=== PATIENT | male | born 1950 | race Caucasian/White ===

== ENCOUNTER 2018-04-22 23:02 | Emergency (ER) | payer MEDICARE, OTHER ==
[~2018-04-22] VITALS: Ht 172.7 cm; Wt 54.4 kg
[2018-04-22] MEDS ORDERED: NORCO 10-325 T1 EACH PO (23:10)
[2018-04-22] MEDS ORDERED: TRAZODONE HCL100 MG PO (23:11)
[2018-04-22] MEDS ORDERED: METOPROLOL TART25 MG PO (23:11)
[2018-04-22] MEDS ORDERED: GABAPENTIN300 MG PO (23:12)
[2018-04-22] MEDS ORDERED: PRAVASTATIN SOD40 MG PO (23:12)
[2018-04-22] MEDS ORDERED: DIAZEPAM 5 MG TAB ONE (23:22)
[2018-04-22] MEDS ORDERED: DIAZEPAM 5 MG TAB PO SCH (23:30)
[2018-04-22] MEDS ORDERED: DIAZEPAM 5 MG TAB PO ONE (23:45)
--- NOTE | 2018-04-23 00:08 | Diagnostic Imaging Report ---
EXAM: CERVICAL 3 VIEWS, AP, lateral and open mouth odontoid view DATE: 04/22/2018 11:17 PM Time stamp on exam: [id number] hours INDICATION: Neck pain, history of neck surgery COMPARISON: None FINDINGS: BONES: On the lateral view, the cervical spine is visualized from the skull base to C7. Grade 1 anterolisthesis of C7 in relation to T1. No displaced fractures. No lytic or blastic lesions. DISCS: Anterior surgical fusion C5, C6 and C7 with complete bony fusion. JOINTS: Multilevel uncovertebral arthrosis SOFT TISSUES: Within normal limits IMPRESSION: Nonspecific grade 1 anterolisthesis of C7 in relation to T1. No priors are available for comparison to establish chronicity. If there is concern for acute ligamentous injury, an MRI of the cervical spine is recommended for further evaluation. Surgical and bony fusion C5-C7. Signed by: Dr. Funmi Perdue M.D. on 04/23/2018 12:05 AM
[2018-04-23] MEDS ORDERED: HYDROMORPHONE 1MG/1ML INJ IM STA ×2 (01:05)
[2018-04-23] MEDS ORDERED: ONDANSETRON HCL 4 MG ORAL DISINTEGRATING TAB PO ONE ×2 (01:15)
[2018-04-23 02:12] VITALS: BP 114/70
[2018-04-23] MEDS ORDERED: VALIUM5 MG PO (02:12)
[2018-04-23] MEDS ORDERED: TALWIN NX PO (02:12)
[2018-04-23] MEDS ORDERED: LIDOCAINE 5% PATCH TP SCH ×2 (02:30→09:00)
[2018-04-23] MEDS ORDERED: LIDOCAINE 5% PATCH TP STA (02:35)
[2018-04-23] MEDS ORDERED: LIDOCAINE 5% PATCH TP ONE (02:37)
== END 2018-04-23 02:39 | disposition home or self-care (01) ==
LOC: ER 23:02
DX: M43.6 Torticollis (principal); S16.1XXA Strain of muscle, fascia and tendon at neck level, initial encounter; X50.1XXA Overexertion from prolonged static or awkward postures, initial encounter
CPT/HCPCS: 72040; 99283; J1170

== ENCOUNTER → 2018-12-17 | Outpatient (CLI) | payer MEDICARE ==
[~2018-12-17] MED LIST: GABAPENTIN300 MG PO; METOPROLOL TART25 MG PO; NORCO 10-325 T1 EACH PO; PRAVASTATIN SOD40 MG PO; REGADENOSON 0.4 MG/5 ML SYR IV ONE; TALWIN NX PO; TRAZODONE HCL100 MG PO; VALIUM5 MG PO
== END ==
LOC: NM 07:41
DX: R07.2 Precordial pain (principal)
CPT/HCPCS: 78452; 93017; A9502; J2785

== ENCOUNTER 2021-02-23 00:37 | Emergency (ER) | payer MEDICARE ==
[~2021-02-23] VITALS: Ht 172.7 cm; Wt 42.8 kg
[~2021-02-23 00:37] MED LIST changes: -REGADENOSON 0.4 MG/5 ML SYR IV ONE
[2021-02-23] MEDS ORDERED: GLUCAGON FOR INJ 1 MG VIAL IV ONE (01:00)
[2021-02-23] MEDS ORDERED: GLUCAGON FOR INJ 1 MG VIAL ONE (01:26)
[2021-02-23 02:11] LABS: BASOPHILS % 0.3 % (0.0-1.0); EOSINOPHILS # (AUTO) 0.1 (0.0-0.4); EOSINOPHILS % 0.8 % (0.0-6.0); HEMATOCRIT 32.5 % (38.2-49.6); HEMOGLOBIN 10.3 g/dL (14.0-18.0); LYMPHOCYTES # (AUTO) 1.3 (1.0-3.2); LYMPHOCYTES % 17.1 % (18.0-39.1); MEAN CORPUSCULAR HEMOGLOBIN 31.8 pg (28-32); MEAN CORPUSCULAR HGB CONC 31.7 g/dL (31-35); MEAN CORPUSCULAR VOLUME 100.3 fL (81-99); MONOCYTES # (AUTO) 0.5 (0.2-0.8); MONOCYTES % 6.3 % (4.4-11.3); NEUTROPHILS # (AUTO) 5.5 (2.1-6.9); NEUTROPHILS % 75.1 % (38.7-80.0); PLATELET COUNT 232 x10e3/uL (140-360); RED BLOOD COUNT 3.24 x10e6/uL (4.3-5.7); RED CELL DISTRIBUTION WIDTH 13.8 % (11.7-14.4)
[2021-02-23] MEDS ORDERED: PANTOPRAZOLE 40 MG 10ML VIAL IV STA (02:37)
[2021-02-23 02:48] LABS: INR 1.04; PROTHROMBIN TIME 14.2 seconds (11.9-14.5)
[2021-02-23] MEDS ORDERED: PANTOPRAZOLE 40 MG 10ML VIAL ONE (02:48)
[2021-02-23 02:52] VITALS: BP 116/60
[2021-02-23 02:58] LABS: ALANINE AMINOTRANSFERASE 6 IU/L (0-55); ALBUMIN 2.9 g/dL (3.5-5.0); ALBUMIN/GLOBULIN RATIO 0.7 (0.8-2.0); ALKALINE PHOSPHATASE 73 IU/L (40-150); ANION GAP 15.7 mmol/L (8-16); BLOOD UREA NITROGEN 13 mg/dL (7-26); BUN/CREATININE RATIO 19 (6-25); CALCIUM 8.8 mg/dL (8.4-10.2); CARBON DIOXIDE 21 mmol/L (22-29); CHLORIDE 104 mmol/L (98-107); CREATINE KINASE 17 IU/L (30-200); CREATININE, SERUM 0.69 mg/dL (0.72-1.25); EST GLOMERULAR FILTRATION RATE > 60 ML/MIN (60-); GLUCOSE 94 mg/dL (74-118); POTASSIUM 4.7 mmol/L (3.5-5.1); SODIUM 136 mmol/L (136-145)
[2021-02-23] MEDS ORDERED: CEPHALEXIN500 MG PO (16:53)
== END 2021-02-23 02:52 | disposition home or self-care (01) ==
LOC: FSED 01:12
DX: R09.89 Other specified symptoms and signs involving the circulatory and respiratory systems (principal); I10 Essential (primary) hypertension; E78.5 Hyperlipidemia, unspecified; F32.9 Major depressive disorder, single episode, unspecified; M54.9 Dorsalgia, unspecified; G89.29 Other chronic pain
CPT/HCPCS: 36415; 70360; 80053; 82550; 82553; 84484; 85025; 85610; 93005; 96374; 99283; C9113; J1610; U0002

== ENCOUNTER 2021-02-23 14:15 | Emergency (ER) | payer MEDICARE ==
[~2021-02-23] VITALS: Ht 172.7 cm; Wt 42.6 kg
[2021-02-23] MEDS ORDERED: SODIUM CHLORIDE 0.9% 1000ML 1,000 ML IV STA (14:30)
[2021-02-23 14:42] LABS: BASOPHILS % 0.3 % (0.0-1.0); EOSINOPHILS # (AUTO) 0.1 (0.0-0.4); EOSINOPHILS % 0.7 % (0.0-6.0); HEMATOCRIT 36.2 % (38.2-49.6); HEMOGLOBIN 11.6 g/dL (14.0-18.0); LYMPHOCYTES # (AUTO) 1.1 (1.0-3.2); LYMPHOCYTES % 15.1 % (18.0-39.1); MONOCYTES # (AUTO) 0.4 (0.2-0.8); MONOCYTES % 4.8 % (4.4-11.3); NEUTROPHILS # (AUTO) 5.8 (2.1-6.9); NEUTROPHILS % 78.6 % (38.7-80.0); PLATELET COUNT 272 x10e3/uL (140-360); RED BLOOD COUNT 3.62 x10e6/uL (4.3-5.7)
[2021-02-23 15:03] LABS: CLARITY,URINE CLOUDY (CLEAR); COLOR,URINE YELLOW (YELLOW); KETONES,URINE NEGATIVE (NEGATIVE); LEUKOCYTE ESTERASE ,URINE LARGE (NEGATIVE); NITRITE,URINE NEGATIVE (NEGATIVE); PROTEIN,URINE DIPSTICK NEGATIVE (NEGATIVE); URINE UROBILINOGEN 0.2 mg/dL (0.2 - 1)
[2021-02-23 15:04] LABS: PROTHROMBIN TIME 13.8 seconds (11.9-14.5)
[2021-02-23 15:14] LABS: ALANINE AMINOTRANSFERASE < 6 IU/L (0-55); ALBUMIN 3.1 g/dL (3.5-5.0); ALBUMIN/GLOBULIN RATIO 0.8 (0.8-2.0); ALKALINE PHOSPHATASE 78 IU/L (40-150); BLOOD UREA NITROGEN 12 mg/dL (7-26); BUN/CREATININE RATIO 18 (6-25); CALCIUM 8.8 mg/dL (8.4-10.2); CARBON DIOXIDE 24 mmol/L (22-29); CHLORIDE 104 mmol/L (98-107); CREATININE, SERUM 0.68 mg/dL (0.72-1.25); EST GLOMERULAR FILTRATION RATE > 60 ML/MIN (60-); GLUCOSE 101 mg/dL (74-118); LIPASE 12 U/L (8-78); SODIUM 137 mmol/L (136-145)
[2021-02-23 15:16] LABS: BACTERIA,URINE MANY /HPF
[2021-02-23] MEDS ORDERED: FENTANYL CITRATE/PF 100MCG/2 ML INJ IV PRN (15:30)
[2021-02-23] MEDS ORDERED: IOPAMIDOL 370 MG/ML 200 ML INFUS..BTL INJ ONE (15:32)
[2021-02-23] MEDS ORDERED: SODIUM CHLORIDE 0.9% 100 ML ONE (15:33)
[2021-02-23] MEDS ORDERED: CEFTRIAXONE SOD 1 GM VIAL IV ONE (15:45)
[2021-02-23] MEDS ORDERED: CEFTRIAXONE SOD 1 GM VIAL IM ONE (15:45)
[2021-02-23] MEDS ORDERED: CEFTRIAXONE SOD 1 GM in SODIUM CHLORIDE 0.9% 50ML 50 ML IV ONE (16:00)
[2021-02-23 16:52] VITALS: BP 135/67
[2021-02-23] MEDS ORDERED: CEPHALEXIN500 MG PO (16:53)
== END 2021-02-23 17:06 | disposition home or self-care (01) ==
LOC: ER 15:05
DX: R10.30 Lower abdominal pain, unspecified (principal); N39.0 Urinary tract infection, site not specified; K59.00 Constipation, unspecified; I10 Essential (primary) hypertension; E78.5 Hyperlipidemia, unspecified; F32.9 Major depressive disorder, single episode, unspecified; M54.9 Dorsalgia, unspecified; G89.29 Other chronic pain
CPT/HCPCS: 36415; 74174; 80053; 81001; 83690; 84484; 85025; 85610; 86850; 86870; 86880; 86900; 86905; 87086; 87186; 93005; 99001; 99284; J0696; J3010; J7030; J7050; Q9967; 31500; 94002

== ENCOUNTER 2021-02-23 22:42 | Inpatient (IN) | payer MEDICARE, OTHER ==
[~2021-02-23] VITALS: Ht 172.7 cm; Wt 64.9 kg
[~2021-02-23 22:42] MED LIST changes: +CEPHALEXIN500 MG PO
[2021-02-23] MEDS ORDERED: ASPIRIN 81 MG CHEW TAB PO ONE (23:00)
[2021-02-23 23:15] LABS: BASOPHILS % 0.2 % (0.0-1.0); HEMATOCRIT 39.8 % (38.2-49.6); HEMOGLOBIN 13.2 g/dL (14.0-18.0); LYMPHOCYTES # (AUTO) 1.6 (1.0-3.2); LYMPHOCYTES % 12.4 % (18.0-39.1); MEAN CORPUSCULAR HEMOGLOBIN 32.6 pg (28-32); MEAN CORPUSCULAR HGB CONC 33.2 g/dL (31-35); MEAN CORPUSCULAR VOLUME 98.3 fL (81-99); MONOCYTES # (AUTO) 0.6 (0.2-0.8); MONOCYTES % 4.3 % (4.4-11.3); NEUTROPHILS # (AUTO) 10.5 (2.1-6.9); NEUTROPHILS % 82.6 % (38.7-80.0); PLATELET COUNT 394 x10e3/uL (140-360); RED BLOOD COUNT 4.05 x10e6/uL (4.3-5.7); RED CELL DISTRIBUTION WIDTH 13.8 % (11.7-14.4)
[2021-02-23] MEDS ORDERED: ONDANSETRON HCL INJ 2MG/ML 2ML 2 MG/ML VIAL IV PRN (23:30)
[2021-02-23] MEDS ORDERED: ONDANSETRON HCL INJ 2MG/ML 2ML 2 MG/ML VIAL ONE (23:34)
[2021-02-23 23:40] LABS: ALANINE AMINOTRANSFERASE 6 IU/L (0-55); ALBUMIN 3.7 g/dL (3.5-5.0); ALBUMIN/GLOBULIN RATIO 0.8 (0.8-2.0); ALKALINE PHOSPHATASE 91 IU/L (40-150); ANION GAP 22.6 mmol/L (8-16); BLOOD UREA NITROGEN 11 mg/dL (7-26); BUN/CREATININE RATIO 15 (6-25); CALCIUM 9.9 mg/dL (8.4-10.2); CARBON DIOXIDE 19 mmol/L (22-29); CHLORIDE 102 mmol/L (98-107); CREATINE KINASE 24 IU/L (30-200); CREATININE, SERUM 0.75 mg/dL (0.72-1.25); EST GLOMERULAR FILTRATION RATE > 60 ML/MIN (60-); GLUCOSE 138 mg/dL (74-118); POTASSIUM 4.6 mmol/L (3.5-5.1); SODIUM 139 mmol/L (136-145)
[2021-02-23] MEDS: SODIUM CHLORIDE 0.9% 1000ML 1,000 ML IV SCH (23:45)
[2021-02-23] MEDS ORDERED: SODIUM CHLORIDE 0.9% 1000ML 2,000 ML ONE (23:54)
[2021-02-23] MEDS ORDERED: SODIUM CHLORIDE 0.9% 1000ML 1,000 ML IV STA ×2 (23:59)
[2021-02-24] VITALS (7 sets, daily range): BP systolic 130–152; BP diastolic 69–93
[2021-02-24] MEDS: CEFTRIAXONE 1 GM in SODIUM CHLORIDE 0.9% 50ML 50 ML IV SCH ×2
[2021-02-24] MEDS ORDERED: CEFTRIAXONE 1 GM VIAL IV SCH
[2021-02-24] MEDS ORDERED: SODIUM CHLORIDE 0.9% 50ML 50 ML ONE (00:11)
[2021-02-24] MEDS ORDERED: MORPHINE SULFATE INJ 4 MG/ML INJ 1ML IV PRN (01:00)
[2021-02-24] MEDS: TRAMADOL HCL 50 MG TAB PO SCH ×2 (05:08→13:07)
[2021-02-24] MEDS: GABAPENTIN 100 MG CAP PO SCH ×3 (05:08→20:52)
[2021-02-24] MEDS: ONDANSETRON HCL INJ 2MG/ML 2ML 2 MG/ML VIAL IV PRN ×4 (05:09→18:35)
[2021-02-24] MEDS: MORPHINE SULFATE INJ 4 MG/ML INJ 1ML IV PRN ×4 (05:09→18:35)
[2021-02-24 07:16] LABS: BASOPHILS % 0.1 % (0.0-1.0); HEMATOCRIT 32.7 % (38.2-49.6); HEMOGLOBIN 10.9 g/dL (14.0-18.0); LYMPHOCYTES # (AUTO) 0.6 (1.0-3.2); MEAN CORPUSCULAR HEMOGLOBIN 32.2 pg (28-32); MEAN CORPUSCULAR HGB CONC 33.3 g/dL (31-35); MEAN CORPUSCULAR VOLUME 96.7 fL (81-99); MONOCYTES # (AUTO) 0.7 (0.2-0.8); MONOCYTES % 6.5 % (4.4-11.3); NEUTROPHILS # (AUTO) 8.8 (2.1-6.9); NEUTROPHILS % 86.6 % (38.7-80.0); PLATELET COUNT 285 x10e3/uL (140-360); RED BLOOD COUNT 3.38 x10e6/uL (4.3-5.7); RED CELL DISTRIBUTION WIDTH 13.8 % (11.7-14.4)
[2021-02-24 07:42] LABS: ALBUMIN 2.6 g/dL (3.5-5.0); ALBUMIN/GLOBULIN RATIO 0.8 (0.8-2.0); ALKALINE PHOSPHATASE 66 IU/L (40-150); ANION GAP 14.6 mmol/L (8-16); BLOOD UREA NITROGEN 9 mg/dL (7-26); BUN/CREATININE RATIO 16 (6-25); CALCIUM 7.7 mg/dL (8.4-10.2); CARBON DIOXIDE 18 mmol/L (22-29); CHLORIDE 109 mmol/L (98-107); CREATININE, SERUM 0.57 mg/dL (0.72-1.25); EST GLOMERULAR FILTRATION RATE > 60 ML/MIN (60-); GLUCOSE 126 mg/dL (74-118); POTASSIUM 3.6 mmol/L (3.5-5.1); SODIUM 138 mmol/L (136-145)
[2021-02-24 07:59] LABS: ALANINE AMINOTRANSFERASE < 6 IU/L (0-55)
[2021-02-24] MEDS: SODIUM CHLORIDE 0.9% 1000ML 1,000 ML IV SCH (11:32)
[2021-02-24] MEDS ORDERED: CITRATE OF MAGNESIA 300ML BOTTLE PO ONE (15:30)
[2021-02-24 15:41] LABS: CLARITY,URINE SL CLOUDY (CLEAR); COLOR,URINE YELLOW (YELLOW); KETONES,URINE 1+ (NEGATIVE); LEUKOCYTE ESTERASE ,URINE MODERATE (NEGATIVE); NITRITE,URINE POSITIVE (NEGATIVE); PROTEIN,URINE DIPSTICK NEGATIVE (NEGATIVE); URINE UROBILINOGEN 0.2 mg/dL (0.2 - 1)
[2021-02-24 15:53] LABS: WBC,URINE (MAN) 21-50 /HPF (0-5)
[2021-02-24 15:54] LABS: BACTERIA,URINE FEW /HPF
[2021-02-24] MEDS: ENOXAPARIN 30 MG/0.3 ML SYR SC SCH (17:26)
[2021-02-24] MEDS: DOCUSATE SODIUM LIQD 100 MG/10 ML UDC NG SCH (17:26)
[2021-02-24] MEDS: METOPROLOL TARTRATE 25 MG TAB PO SCH (17:27)
[2021-02-24] MEDS: TRAMADOL HCL 50 MG TAB PO PRN (20:53)
[2021-02-24] MEDS: DIAZEPAM 5 MG TAB PO SCH (20:53)
[2021-02-25] VITALS (8 sets, daily range): BP systolic 109–133; BP diastolic 64–82
[2021-02-25] MEDS: SODIUM CHLORIDE 0.9% 1000ML 1,000 ML IV SCH
[2021-02-25] MEDS: MORPHINE SULFATE INJ 4 MG/ML INJ 1ML IV PRN ×2 (00:13→06:32)
[2021-02-25] MEDS: ONDANSETRON HCL INJ 2MG/ML 2ML 2 MG/ML VIAL IV PRN (00:14)
[2021-02-25] MEDS: CEFTRIAXONE 1 GM in SODIUM CHLORIDE 0.9% 50ML 50 ML IV SCH (00:23)
[2021-02-25] MEDS: TRAMADOL HCL 50 MG TAB PO PRN ×2 (04:19→23:03)
[2021-02-25] MEDS: DIAZEPAM 5 MG TAB PO SCH (05:27)
[2021-02-25 05:39] LABS: BASOPHILS % 0.2 % (0.0-1.0); HEMATOCRIT 39.5 % (38.2-49.6); HEMOGLOBIN 12.6 g/dL (14.0-18.0); LYMPHOCYTES # (AUTO) 0.8 (1.0-3.2); LYMPHOCYTES % 7.4 % (18.0-39.1); MEAN CORPUSCULAR HEMOGLOBIN 32.4 pg (28-32); MEAN CORPUSCULAR HGB CONC 31.9 g/dL (31-35); MEAN CORPUSCULAR VOLUME 101.5 fL (81-99); MONOCYTES % 9.4 % (4.4-11.3); NEUTROPHILS # (AUTO) 8.5 (2.1-6.9); NEUTROPHILS % 82.2 % (38.7-80.0); PLATELET COUNT 331 x10e3/uL (140-360); RED BLOOD COUNT 3.89 x10e6/uL (4.3-5.7); RED CELL DISTRIBUTION WIDTH 14.4 % (11.7-14.4)
[2021-02-25 06:02] LABS: ANION GAP 15.5 mmol/L (8-16); BLOOD UREA NITROGEN 12 mg/dL (7-26); BUN/CREATININE RATIO 16 (6-25); CALCIUM 8.1 mg/dL (8.4-10.2); CARBON DIOXIDE 21 mmol/L (22-29); CHLORIDE 108 mmol/L (98-107); CREATININE, SERUM 0.74 mg/dL (0.72-1.25); EST GLOMERULAR FILTRATION RATE > 60 ML/MIN (60-); GLUCOSE 123 mg/dL (74-118); POTASSIUM 4.5 mmol/L (3.5-5.1); SODIUM 140 mmol/L (136-145)
[2021-02-25] MEDS: METOPROLOL TARTRATE 25 MG TAB PO SCH ×3 (09:20→21:00)
[2021-02-25] MEDS: GABAPENTIN 100 MG CAP PO SCH ×3 (09:20→21:00)
[2021-02-25] MEDS: DOCUSATE SODIUM LIQD 100 MG/10 ML UDC NG SCH ×2 (09:20→17:47)
[2021-02-25] MEDS ORDERED: METOPROLOL TARTRATE INJ 1 MG/ML VIAL IV PRN (11:30)
[2021-02-25] MEDS ORDERED: MORPHINE SULFATE INJ 4 MG/ML INJ 1ML IV PRN (13:30)
[2021-02-25] MEDS ORDERED: DIAZEPAM 2 MG TAB PO PRN (13:45)
[2021-02-25] MEDS ORDERED: MORPHINE SULFATE INJ 2 MG/ML SYR IV PRN (13:45)
[2021-02-25 13:59] LABS: ABG HCO3 26 mmol/L (22-26); ABG PCO2 39 mmHg (35-45); ABG PH 7.42 (7.35-7.45); ABG PO2 54 mmHg (80-105)
[2021-02-25 14:00] LABS: ABG TCO2 27
[2021-02-25] MEDS ORDERED: DIAZEPAM 2 MG TAB PO SCH (14:00)
[2021-02-25] MEDS ORDERED: DIAZEPAM 5 MG TAB PO SCH (14:00)
[2021-02-25] MEDS ORDERED: IOPAMIDOL 370 MG/ML 200 ML INFUS..BTL INJ ONE (17:34)
[2021-02-25] MEDS ORDERED: SODIUM CHLORIDE 0.9% 50ML 50 ML ONE (17:34)
[2021-02-25] MEDS: ENOXAPARIN 30 MG/0.3 ML SYR SC SCH (17:48)
[2021-02-25] MEDS ORDERED: CEFEPIME HCL 1 GM VIAL ONE (20:39)
[2021-02-25] MEDS ORDERED: CEFEPIME HCL 1 GM VIAL IV SCH (22:00)
[2021-02-25] MEDS: CEFEPIME 1 GM in SODIUM CHLORIDE 0.9% 50ML 50 ML IV SCH (22:00)
[2021-02-25] MEDS ORDERED: ACETAMINOPHEN 325 MG TAB PO PRN (23:45)
[2021-02-26] VITALS (31 sets, daily range): BP systolic 81–144; BP diastolic 26–92
[2021-02-26] MEDS: ALBUTEROL/IPRATROPIUM 3 ML NEB NEB SCH ×4 (02:25→19:50)
[2021-02-26] MEDS ORDERED: SODIUM CHLORIDE 0.9% 250ML 250 ML ONE (04:23)
[2021-02-26] MEDS: CEFEPIME 1 GM in SODIUM CHLORIDE 0.9% 50ML 50 ML IV SCH ×3 (06:03→22:09)
[2021-02-26 06:09] LABS: HEMOGLOBIN 10.9 g/dL (14.0-18.0); LYMPHOCYTES # (AUTO) 0.6 (1.0-3.2); LYMPHOCYTES % 16.2 % (18.0-39.1); MEAN CORPUSCULAR HGB CONC 31.1 g/dL (31-35); MEAN CORPUSCULAR VOLUME 102.6 fL (81-99); MONOCYTES # (AUTO) 0.1 (0.2-0.8); MONOCYTES % 2.3 % (4.4-11.3); NEUTROPHILS # (AUTO) 3.1 (2.1-6.9); NEUTROPHILS % 79.7 % (38.7-80.0); PLATELET COUNT 241 x10e3/uL (140-360); RED BLOOD COUNT 3.41 x10e6/uL (4.3-5.7); RED CELL DISTRIBUTION WIDTH 14.3 % (11.7-14.4)
[2021-02-26 06:27] LABS: ALBUMIN 2.1 g/dL (3.5-5.0); ALBUMIN/GLOBULIN RATIO 0.7 (0.8-2.0); ANION GAP 13.9 mmol/L (8-16); CALCIUM 7.9 mg/dL (8.4-10.2); CREATININE, SERUM 1.66 mg/dL (0.72-1.25); POTASSIUM 3.9 mmol/L (3.5-5.1)
[2021-02-26] MEDS: ONDANSETRON HCL INJ 2MG/ML 2ML 2 MG/ML VIAL IV PRN (07:40)
[2021-02-26] MEDS: DOCUSATE SODIUM LIQD 100 MG/10 ML UDC NG SCH ×2 (09:00→16:13)
[2021-02-26] MEDS: METOPROLOL TARTRATE 25 MG TAB PO SCH ×3 (09:00→20:01)
[2021-02-26] MEDS: GABAPENTIN 100 MG CAP PO SCH ×3 (09:00→20:02)
[2021-02-26] MEDS ORDERED: NALOXONE HCL INJ 0.4 MG/ML AMP ONE ×2 (09:00→09:03)
[2021-02-26] MEDS ORDERED: SODIUM CHLORIDE 0.9% 1000ML 1,000 ML ONE (09:05)
[2021-02-26] MEDS ORDERED: VANCOMYCIN 1GM/NS 250 ML 250 ML IV ONE (10:15)
[2021-02-26] MEDS ORDERED: SODIUM CHLORIDE 0.9% 500ML 300 ML IV ONE (10:30)
[2021-02-26] MEDS ORDERED: SODIUM CHLORIDE 0.9% 500ML 500 ML ONE (10:55)
[2021-02-26 11:10] LABS: ABG HCO3 29 mmol/L (22-26); ABG PCO2 42 mmHg (35-45); ABG PH 7.45 (7.35-7.45); ABG PO2 52 mmHg (80-105); ABG TCO2 31
[2021-02-26] MEDS: NOREPINEPHRINE 8 MG/D5W 250 ML 250 ML IV PRN ×2 (12:20→22:50)
[2021-02-26] MEDS ORDERED: NOREPINEPHRINE 8 MG/D5W 250 ML 250 ML ONE (12:21)
[2021-02-26] MEDS: SODIUM CHLORIDE 0.9% 1000ML 1,000 ML IV SCH (14:04)
[2021-02-26] MEDS: FENTANYL 2000MCG/NS 250 250 ML IV SCH (14:37)
[2021-02-26 15:01] LABS: ABG HCO3 27 mmol/L (22-26); ABG PCO2 58 mmHg (35-45); ABG PH 7.28 (7.35-7.45); ABG PO2 97 mmHg (80-105); ABG TCO2 29
[2021-02-26] MEDS: ENOXAPARIN 30 MG/0.3 ML SYR SC SCH (16:13)
[2021-02-26] MEDS ORDERED: ALBUMIN 25% 25GM 100ML 0.25 GM/ML BTL IV NR (16:45)
[2021-02-26] MEDS: VASOPRESSIN 60 UNIT in DEXTROSE 5% 50ML 57 ML IV SCH (17:11)
[2021-02-26] MEDS ORDERED: PHENYLEPHRINE 10MG/ML VIAL 40 MG in DEXTROSE 5% 250ML 246 ML IV PRN (21:30)
[2021-02-26] MEDS ORDERED: ACETAMINOPHEN 1000 MG/100 ML IV PRN (21:30)
[2021-02-26 21:54] LABS: ABG HCO3 27 mmol/L (22-26); ABG PCO2 64 mmHg (35-45); ABG PH 7.24 (7.35-7.45); ABG PO2 53 mmHg (80-105); ABG TCO2 29
[2021-02-26 22:02] LABS: BASOPHILS % 0.5 % (0.0-1.0); HEMATOCRIT 34.7 % (38.2-49.6); HEMOGLOBIN 10.7 g/dL (14.0-18.0); LYMPHOCYTES # (AUTO) 0.3 (1.0-3.2); LYMPHOCYTES % 17.1 % (18.0-39.1); MEAN CORPUSCULAR HEMOGLOBIN 32.3 pg (28-32); MEAN CORPUSCULAR HGB CONC 30.8 g/dL (31-35); MEAN CORPUSCULAR VOLUME 104.8 fL (81-99); MONOCYTES # (AUTO) 0.1 (0.2-0.8); NEUTROPHILS # (AUTO) 1.5 (2.1-6.9); NEUTROPHILS % 76.4 % (38.7-80.0); PLATELET COUNT 196 x10e3/uL (140-360); RED BLOOD COUNT 3.31 x10e6/uL (4.3-5.7); RED CELL DISTRIBUTION WIDTH 14.4 % (11.7-14.4)
[2021-02-27] VITALS (26 sets, daily range): BP systolic 81–130; BP diastolic 46–76
[2021-02-27] MEDS: ALBUTEROL/IPRATROPIUM 3 ML NEB NEB SCH ×4 (00:35→20:05)
[2021-02-27] MEDS: FENTANYL 2000MCG/NS 250 250 ML IV SCH ×2 (01:09→22:46)
[2021-02-27] MEDS: LORAZEPAM INJ 2 MG/ML VIAL IV PRN (04:20)
[2021-02-27] MEDS: SODIUM CHLORIDE 0.9% 1000ML 1,000 ML IV SCH (04:43)
[2021-02-27 05:24] LABS: BASOPHILS % 0.7 % (0.0-1.0); EOSINOPHILS % 0.7 % (0.0-6.0); HEMATOCRIT 30.4 % (38.2-49.6); HEMOGLOBIN 9.4 g/dL (14.0-18.0); LYMPHOCYTES # (AUTO) 0.3 (1.0-3.2); LYMPHOCYTES % 10.3 % (18.0-39.1); MEAN CORPUSCULAR HEMOGLOBIN 32.2 pg (28-32); MEAN CORPUSCULAR HGB CONC 30.9 g/dL (31-35); MEAN CORPUSCULAR VOLUME 104.1 fL (81-99); MONOCYTES # (AUTO) 0.1 (0.2-0.8); MONOCYTES % 3.2 % (4.4-11.3); NEUTROPHILS # (AUTO) 2.3 (2.1-6.9); PLATELET COUNT 146 x10e3/uL (140-360); RED BLOOD COUNT 2.92 x10e6/uL (4.3-5.7); RED CELL DISTRIBUTION WIDTH 14.3 % (11.7-14.4)
[2021-02-27 05:39] LABS: ALBUMIN 1.7 g/dL (3.5-5.0); ALBUMIN/GLOBULIN RATIO 0.6 (0.8-2.0); ANION GAP 13.7 mmol/L (8-16); CALCIUM 7.1 mg/dL (8.4-10.2); CREATININE, SERUM 1.22 mg/dL (0.72-1.25); POTASSIUM 3.7 mmol/L (3.5-5.1)
[2021-02-27 06:02] LABS: PHOSPHORUS 4.2 MG/DL (2.3-4.7)
[2021-02-27] MEDS: CEFEPIME 1 GM in SODIUM CHLORIDE 0.9% 50ML 50 ML IV SCH ×3 (06:02→21:08)
[2021-02-27 07:22] LABS: LYMPHOCYTES % (MANUAL) 7 % (19-48); NEUTROPHILS % (MANUAL) 76 % (40-74)
[2021-02-27 07:23] LABS: METAMYELOCYTES % (MANUAL) 1 % (0-0); MONOCYTES % (MANUAL) 11 % (3.4-9.0); PLATELET ESTIMATE ADEQUATE; PLATELET MORPHOLOGY COMMENT MANY LARGE; RBC MORPHOLOGY COMMENT NORMAL
[2021-02-27] MEDS: NOREPINEPHRINE 8 MG/D5W 250 ML 250 ML IV PRN ×2 (08:00→14:23)
[2021-02-27] MEDS: DOCUSATE SODIUM LIQD 100 MG/10 ML UDC NG SCH ×2 (08:58→17:00)
[2021-02-27] MEDS: METOPROLOL TARTRATE 25 MG TAB PO SCH ×3 (08:58→21:00)
[2021-02-27] MEDS: GABAPENTIN 100 MG CAP PO SCH ×3 (08:59→21:00)
[2021-02-27] MEDS: LACTATED RINGER'S 1,000 ML INJ SCH ×2 (11:17→22:45)
[2021-02-27] MEDS: METOCLOPRAMIDE HCL 10 MG/2ML VIAL IV NR ×2 (12:05→13:28)
[2021-02-27] MEDS ORDERED: FUROSEMIDE INJ 10 MG/ML 4 ML VIAL IV NR (13:00)
[2021-02-27] MEDS: VASOPRESSIN 60 UNIT in DEXTROSE 5% 50ML 57 ML IV SCH (13:00)
[2021-02-27] MEDS ORDERED: SUCCINYLCHOLINE CHLORIDE 20 MG/ML 10ML VIAL ONE (13:07)
[2021-02-27] MEDS ORDERED: VECURONIUM BROMIDE FOR INJ 20 MG VIAL ONE (13:07)
[2021-02-27] MEDS ORDERED: MIDAZOLAM HCL 2 MG/2 ML VIAL ONE (13:07)
[2021-02-27] MEDS ORDERED: ETOMIDATE 2 MG/ML 10 ML INJ IV ONE (13:07)
[2021-02-27 14:33] LABS: ABG HCO3 22 mmol/L (22-26); ABG PCO2 44 mmHg (35-45); ABG PH 7.31 (7.35-7.45); ABG PO2 68 mmHg (80-105); ABG TCO2 24
[2021-02-27] MEDS ORDERED: DEXTROSE 50% SYRINGE 50 ML IV PRN (15:15)
[2021-02-27] MEDS: ENOXAPARIN 30 MG/0.3 ML SYR SC SCH (17:00)
[2021-02-27] MEDS: METOCLOPRAMIDE HCL 10 MG/2ML VIAL IV SCH (18:00)
[2021-02-28] VITALS (25 sets, daily range): BP systolic 80–117; BP diastolic 46–63
[2021-02-28] MEDS: METOCLOPRAMIDE HCL 10 MG/2ML VIAL IV SCH ×4 (00:33→17:38)
[2021-02-28] MEDS: ALBUTEROL/IPRATROPIUM 3 ML NEB NEB SCH ×3 (00:45→19:25)
[2021-02-28] MEDS: NOREPINEPHRINE 8 MG/D5W 250 ML 250 ML IV PRN ×2 (01:26→14:02)
[2021-02-28 05:40] LABS: BASOPHILS # (AUTO) 0.1 (0.0-0.1); BASOPHILS % 0.7 % (0.0-1.0); EOSINOPHILS % 0.5 % (0.0-6.0); HEMATOCRIT 26.4 % (38.2-49.6); HEMOGLOBIN 8.2 g/dL (14.0-18.0); LYMPHOCYTES # (AUTO) 0.3 (1.0-3.2); LYMPHOCYTES % 3.8 % (18.0-39.1); MEAN CORPUSCULAR HEMOGLOBIN 32.4 pg (28-32); MEAN CORPUSCULAR HGB CONC 31.1 g/dL (31-35); MEAN CORPUSCULAR VOLUME 104.3 fL (81-99); MONOCYTES # (AUTO) 0.2 (0.2-0.8); MONOCYTES % 2.7 % (4.4-11.3); NEUTROPHILS # (AUTO) 6.5 (2.1-6.9); NEUTROPHILS % 86.1 % (38.7-80.0); PLATELET COUNT 79 x10e3/uL (140-360); RED BLOOD COUNT 2.53 x10e6/uL (4.3-5.7); RED CELL DISTRIBUTION WIDTH 14.6 % (11.7-14.4)
[2021-02-28] MEDS: LORAZEPAM INJ 2 MG/ML VIAL IV PRN (05:45)
[2021-02-28] MEDS: CEFEPIME 1 GM in SODIUM CHLORIDE 0.9% 50ML 50 ML IV SCH ×3 (06:00→21:16)
[2021-02-28 06:11] LABS: ALBUMIN 1.5 g/dL (3.5-5.0); ALBUMIN/GLOBULIN RATIO 0.5 (0.8-2.0); ANION GAP 12.2 mmol/L (8-16); CALCIUM 7.4 mg/dL (8.4-10.2); CREATININE, SERUM 1.2 mg/dL (0.72-1.25); POTASSIUM 3.2 mmol/L (3.5-5.1)
[2021-02-28 06:28] LABS: BAND NEUTROPHILS % (MANUAL) 1 %; LYMPHOCYTES % (MANUAL) 1 % (19-48); MONOCYTES % (MANUAL) 2 % (3.4-9.0); NEUTROPHILS % (MANUAL) 96 % (40-74)
[2021-02-28 06:29] LABS: TOXIC GRANULATION SLIGHT
[2021-02-28 06:31] LABS: ANISOCYTOSIS SLIGHT; PLATELET ESTIMATE MODERATELY DECREASED; PLATELET MORPHOLOGY COMMENT NORMAL; RBC MORPHOLOGY COMMENT NORMAL
[2021-02-28 06:44] LABS: AMYLASE 21 U/L (25-125)
[2021-02-28 07:00] LABS: LIPASE < 4 U/L (8-78)
[2021-02-28] MEDS: GABAPENTIN 100 MG CAP PO SCH ×3 (09:00→20:47)
[2021-02-28] MEDS: DOCUSATE SODIUM LIQD 100 MG/10 ML UDC NG SCH ×2 (09:00→15:07)
[2021-02-28] MEDS: METOPROLOL TARTRATE 25 MG TAB PO SCH ×3 (09:00→20:47)
[2021-02-28] MEDS ORDERED: POTASSIUM CHLORIDE 20MEQ/100ML 100 ML IV ONE (09:30)
[2021-02-28 10:40] LABS: CALCIUM IONIZED 1.1 mmol/L (1.09-1.30)
[2021-02-28 11:04] LABS: ABG PH 7.38 (7.35-7.45)
[2021-02-28 11:05] LABS: ABG HCO3 27 mmol/L (22-26); ABG PCO2 46 mmHg (35-45); ABG PO2 123 mmHg (80-105); ABG TCO2 29
[2021-02-28] MEDS ORDERED: DEXTROSE 10% 1,000 ML IV PRN (11:30)
[2021-02-28] MEDS: METOPROLOL TARTRATE INJ 1 MG/ML VIAL IV PRN (11:57)
[2021-02-28] MEDS ORDERED: VASOPRESSIN 60 UNIT in DEXTROSE 5% 50ML 57 ML IV PRN (13:00)
[2021-02-28] MEDS ORDERED: AMIODARONE HCL 150 MG/100 ML BAG IV ONE (13:45)
[2021-02-28] MEDS ORDERED: AMIODARONE 900MG 500 ML IV ONE (13:45)
[2021-02-28] MEDS: DIGOXIN INJ 0.25 MG/ML 2 ML AMP IV SCH ×2 (15:11→17:38)
[2021-02-28] MEDS: FENTANYL 2000MCG/NS 250 250 ML IV SCH (16:55)
[2021-02-28] MEDS ORDERED: CENTRAL TPN FORMULA 1 BAG IV SCH (20:00)
[2021-02-28] MEDS ORDERED: SODIUM CHLORIDE 0.9% 250ML 250 ML ONE (21:14)
[2021-03-01] VITALS (25 sets, daily range): BP systolic 86–117; BP diastolic 41–61
[2021-03-01] MEDS: ALBUTEROL/IPRATROPIUM 3 ML NEB NEB SCH ×3 (01:05→13:06)
[2021-03-01] MEDS: METOCLOPRAMIDE HCL 10 MG/2ML VIAL IV SCH ×4 (01:17→17:43)
[2021-03-01 04:36] LABS: BASOPHILS # (AUTO) 0.1 (0.0-0.1); BASOPHILS % 0.5 % (0.0-1.0); EOSINOPHILS # (AUTO) 0.1 (0.0-0.4); EOSINOPHILS % 0.6 % (0.0-6.0); HEMATOCRIT 26.1 % (38.2-49.6); HEMOGLOBIN 7.9 g/dL (14.0-18.0); LYMPHOCYTES # (AUTO) 0.5 (1.0-3.2); LYMPHOCYTES % 4.2 % (18.0-39.1); MEAN CORPUSCULAR HEMOGLOBIN 31.6 pg (28-32); MEAN CORPUSCULAR HGB CONC 30.3 g/dL (31-35); MEAN CORPUSCULAR VOLUME 104.4 fL (81-99); MONOCYTES # (AUTO) 0.5 (0.2-0.8); MONOCYTES % 4.8 % (4.4-11.3); NEUTROPHILS # (AUTO) 9.4 (2.1-6.9); NEUTROPHILS % 87.2 % (38.7-80.0); PLATELET COUNT 50 x10e3/uL (140-360); RED CELL DISTRIBUTION WIDTH 14.6 % (11.7-14.4)
[2021-03-01 04:47] LABS: INR 2.13; PROTHROMBIN TIME 24.6 seconds (11.9-14.5)
[2021-03-01 04:48] LABS: PARTIAL THROMBOPLASTIN TIME 59.7 seconds (23.8-35.5)
[2021-03-01 05:02] LABS: ALANINE AMINOTRANSFERASE 36 IU/L (0-55); ALBUMIN 1.4 g/dL (3.5-5.0); ALBUMIN/GLOBULIN RATIO 0.5 (0.8-2.0); ALKALINE PHOSPHATASE 61 IU/L (40-150); ANION GAP 12.4 mmol/L (8-16); BLOOD UREA NITROGEN 37 mg/dL (7-26); BUN/CREATININE RATIO 37 (6-25); CALCIUM 7.7 mg/dL (8.4-10.2); CARBON DIOXIDE 24 mmol/L (22-29); CHLORIDE 102 mmol/L (98-107); CREATININE, SERUM 1.01 mg/dL (0.72-1.25); EST GLOMERULAR FILTRATION RATE > 60 ML/MIN (60-); GLUCOSE 201 mg/dL (74-118); POTASSIUM 3.4 mmol/L (3.5-5.1); SODIUM 135 mmol/L (136-145)
[2021-03-01] MEDS: CEFEPIME 1 GM in SODIUM CHLORIDE 0.9% 50ML 50 ML IV SCH ×3 (06:06→21:58)
[2021-03-01 06:42] LABS: ANISOCYTOSIS SLIGHT; BAND NEUTROPHILS % (MANUAL) 2 %; LYMPHOCYTES % (MANUAL) 2 % (19-48); MYELOCYTES % (MANUAL) 1 % (0-0); PLATELET ESTIMATE MARKEDLY DECREASED; PLATELET MORPHOLOGY COMMENT NORMAL; RBC MORPHOLOGY COMMENT NORMAL; TOXIC GRANULATION SLIGHT
[2021-03-01 06:44] LABS: MONOCYTES % (MANUAL) 2 % (3.4-9.0); NEUTROPHILS % (MANUAL) 93 % (40-74)
[2021-03-01] MEDS: DOCUSATE SODIUM LIQD 100 MG/10 ML UDC NG SCH ×2 (09:00→16:32)
[2021-03-01] MEDS: METOPROLOL TARTRATE 25 MG TAB PO SCH ×3 (09:00→20:17)
[2021-03-01] MEDS: GABAPENTIN 100 MG CAP PO SCH ×3 (09:00→20:17)
[2021-03-01] MEDS ORDERED: LORAZEPAM INJ 2 MG/ML VIAL IV NR (11:15)
[2021-03-01] MEDS ORDERED: LORAZEPAM INJ 2 MG/ML VIAL IV PRN (11:15)
[2021-03-01] MEDS ORDERED: SODIUM CHLORIDE 0.9% 250ML 250 ML ONE (11:57)
[2021-03-01] MEDS ORDERED: AMIODARONE 900MG 500 ML IV ONE (12:30)
[2021-03-01] MEDS ORDERED: POTASSIUM CHLORIDE 20MEQ/100ML 100 ML IV ONE (13:30)
[2021-03-01 13:45] LABS: ABG PCO2 44 mmHg (35-45); ABG PH 7.39 (7.35-7.45)
[2021-03-01 13:46] LABS: ABG HCO3 27 mmol/L (22-26); ABG PO2 215 mmHg (80-105); ABG TCO2 28
[2021-03-01] MEDS: FENTANYL 2000MCG/NS 250 250 ML IV SCH ×2 (14:47→22:30)
[2021-03-01] MEDS: PROPOFOL IV EMULSION 50 ML IV SCH ×2 (16:31→22:14)
[2021-03-01] MEDS: CENTRAL TPN FORMULA 1 BAG IV SCH (20:17)
[2021-03-01] MEDS: LORAZEPAM INJ 2 MG/ML VIAL IV PRN (22:35)
[2021-03-02] VITALS (25 sets, daily range): BP systolic 89–125; BP diastolic 34–75
[2021-03-02] MEDS: ALBUTEROL/IPRATROPIUM 3 ML NEB NEB SCH ×4 (00:30→19:10)
[2021-03-02] MEDS: FENTANYL 2000MCG/NS 250 250 ML IV SCH (00:52)
[2021-03-02] MEDS: METOCLOPRAMIDE HCL 10 MG/2ML VIAL IV SCH ×4 (00:53→17:07)
[2021-03-02 04:59] LABS: BASOPHILS # (AUTO) 0.1 (0.0-0.1); BASOPHILS % 0.8 % (0.0-1.0); EOSINOPHILS % 0.3 % (0.0-6.0); HEMATOCRIT 23.6 % (38.2-49.6); HEMOGLOBIN 7.5 g/dL (14.0-18.0); LYMPHOCYTES # (AUTO) 0.3 (1.0-3.2); LYMPHOCYTES % 2.6 % (18.0-39.1); MEAN CORPUSCULAR HEMOGLOBIN 31.9 pg (28-32); MEAN CORPUSCULAR HGB CONC 31.8 g/dL (31-35); MEAN CORPUSCULAR VOLUME 100.4 fL (81-99); MONOCYTES # (AUTO) 0.4 (0.2-0.8); MONOCYTES % 3.2 % (4.4-11.3); NEUTROPHILS # (AUTO) 10.8 (2.1-6.9); NEUTROPHILS % 89.8 % (38.7-80.0); RED BLOOD COUNT 2.35 x10e6/uL (4.3-5.7); RED CELL DISTRIBUTION WIDTH 14.6 % (11.7-14.4)
[2021-03-02 05:04] LABS: PLATELET COUNT 37 x10e3/uL (140-360)
[2021-03-02 05:17] LABS: ALANINE AMINOTRANSFERASE 69 IU/L (0-55); ALBUMIN 1.6 g/dL (3.5-5.0); ALBUMIN/GLOBULIN RATIO 0.5 (0.8-2.0); ALKALINE PHOSPHATASE 57 IU/L (40-150); ANION GAP 11.6 mmol/L (8-16); BLOOD UREA NITROGEN 30 mg/dL (7-26); BUN/CREATININE RATIO 37 (6-25); CALCIUM 7.7 mg/dL (8.4-10.2); CARBON DIOXIDE 23 mmol/L (22-29); CHLORIDE 102 mmol/L (98-107); CREATININE, SERUM 0.81 mg/dL (0.72-1.25); EST GLOMERULAR FILTRATION RATE > 60 ML/MIN (60-); GLUCOSE 127 mg/dL (74-118); SODIUM 134 mmol/L (136-145)
[2021-03-02 05:23] LABS: POTASSIUM 2.6 mmol/L (3.5-5.1)
[2021-03-02] MEDS ORDERED: POTASSIUM CHLORIDE 20MEQ/100ML 200 ML ONE (06:02)
[2021-03-02] MEDS ORDERED: POTASSIUM CHLORIDE 20MEQ/100ML 200 ML IV ONE ×2 (06:30→12:00)
[2021-03-02] MEDS ORDERED: ACETAMINOPHEN 1000 MG/100 ML IV STA (06:40)
[2021-03-02 06:41] LABS: INR 1.37; PROTHROMBIN TIME 17.5 seconds (11.9-14.5)
[2021-03-02 06:42] LABS: PARTIAL THROMBOPLASTIN TIME 44.5 seconds (23.8-35.5)
[2021-03-02 06:42] LABS: BAND NEUTROPHILS % (MANUAL) 3 %; LYMPHOCYTES % (MANUAL) 1 % (19-48); MONOCYTES % (MANUAL) 5 % (3.4-9.0); NEUTROPHILS % (MANUAL) 91 % (40-74)
[2021-03-02 06:43] LABS: PLATELET ESTIMATE MARKEDLY DECREASED; PLATELET MORPHOLOGY COMMENT NORMAL; TOXIC GRANULATION SLIGHT
[2021-03-02 06:44] LABS: ANISOCYTOSIS SLIGHT; RBC MORPHOLOGY COMMENT NORMAL
[2021-03-02] MEDS: CEFEPIME 1 GM in SODIUM CHLORIDE 0.9% 50ML 50 ML IV SCH ×3 (06:52→22:19)
[2021-03-02] MEDS: PROPOFOL IV EMULSION 50 ML IV SCH ×2 (07:26→20:30)
[2021-03-02] MEDS: METOPROLOL TARTRATE 25 MG TAB PO SCH ×3 (08:45→20:23)
[2021-03-02] MEDS: GABAPENTIN 100 MG CAP PO SCH (08:48)
[2021-03-02] MEDS: COLLAGENASE 5 GM TUBE TOP SCH (08:48)
[2021-03-02] MEDS: BALSAM PERU/CASTOR OIL 60 GM OINT...G. TP SCH (08:48)
[2021-03-02] MEDS: DOCUSATE SODIUM LIQD 100 MG/10 ML UDC NG SCH ×2 (08:48→17:00)
[2021-03-02] MEDS ORDERED: LACTATED RINGER'S 1,000 ML INJ ONE (10:00)
[2021-03-02] MEDS: VANCOMYCIN 1GM/NS 250 ML 250 ML IV SCH (10:09)
[2021-03-02] MEDS: DIGOXIN INJ 0.25 MG/ML 2 ML AMP IV SCH ×2 (10:29→15:04)
[2021-03-02 11:55] LABS: ABG PCO2 30 mmHg (35-45); ABG PH 7.47 (7.35-7.45)
[2021-03-02 11:56] LABS: ABG HCO3 22 mmol/L (22-26); ABG PO2 75 mmHg (80-105); ABG TCO2 23
[2021-03-02 18:24] LABS: RED BLOOD COUNT 2.06 x10e6/uL (4.3-5.7); RED CELL DISTRIBUTION WIDTH 14.5 % (11.7-14.4)
[2021-03-02 18:33] LABS: HEMATOCRIT 20.6 % (38.2-49.6); HEMOGLOBIN 6.6 g/dL (14.0-18.0); PLATELET COUNT 32 x10e3/uL (140-360)
[2021-03-02] MEDS ORDERED: SODIUM CHLORIDE 0.9% 250ML 250 ML IV ONE (18:45)
[2021-03-02 18:59] LABS: FERRITIN 1763.4 ng/mL (21.81-274.66)
[2021-03-02] MEDS: CENTRAL TPN FORMULA 1 BAG IV SCH (19:39)
[2021-03-02] MEDS ORDERED: SODIUM CHLORIDE 0.9% 250ML 250 ML ONE (19:43)
[2021-03-02] MEDS: HEPARIN SOD (PORCINE) 5,000 UNIT/ML VIAL SC SCH ×2 (20:34→20:41)
[2021-03-02] MEDS: LORAZEPAM INJ 2 MG/ML VIAL IV PRN (22:00)
[2021-03-03] VITALS (23 sets, daily range): BP systolic 98–150; BP diastolic 39–64
[2021-03-03] MEDS: METOCLOPRAMIDE HCL 10 MG/2ML VIAL IV SCH ×4 (00:27→16:22)
[2021-03-03] MEDS: PROPOFOL IV EMULSION 50 ML IV SCH ×4 (01:24→22:22)
[2021-03-03] MEDS: ALBUTEROL/IPRATROPIUM 3 ML NEB NEB SCH ×4 (02:15→19:25)
[2021-03-03 03:48] LABS: ALANINE AMINOTRANSFERASE 65 IU/L (0-55); ALBUMIN 1.5 g/dL (3.5-5.0); ALBUMIN/GLOBULIN RATIO 0.5 (0.8-2.0); ALKALINE PHOSPHATASE 55 IU/L (40-150); ANION GAP 9.8 mmol/L (8-16); BLOOD UREA NITROGEN 31 mg/dL (7-26); BUN/CREATININE RATIO 41 (6-25); CARBON DIOXIDE 23 mmol/L (22-29); CHLORIDE 103 mmol/L (98-107); CREATININE, SERUM 0.76 mg/dL (0.72-1.25); EST GLOMERULAR FILTRATION RATE > 60 ML/MIN (60-); GLUCOSE 123 mg/dL (74-118); SODIUM 133 mmol/L (136-145)
[2021-03-03 03:49] LABS: POTASSIUM 2.8 mmol/L (3.5-5.1)
[2021-03-03] MEDS: POTASSIUM CHLORIDE 20MEQ/100ML 100 ML IV SCH ×2 (04:05→06:38)
[2021-03-03] MEDS ORDERED: SODIUM CHLORIDE 0.9% 250ML 250 ML ONE (06:15)
[2021-03-03] MEDS: CEFEPIME 1 GM in SODIUM CHLORIDE 0.9% 50ML 50 ML IV SCH ×3 (06:38→21:14)
[2021-03-03] MEDS: BALSAM PERU/CASTOR OIL 60 GM OINT...G. TP SCH (08:11)
[2021-03-03] MEDS: METOPROLOL TARTRATE 25 MG TAB PO SCH (08:11)
[2021-03-03] MEDS: COLLAGENASE 5 GM TUBE TOP SCH (08:11)
[2021-03-03] MEDS: DOCUSATE SODIUM LIQD 100 MG/10 ML UDC NG SCH ×2 (08:11→16:21)
[2021-03-03] MEDS ORDERED: LORAZEPAM INJ 2 MG/ML VIAL IV PRN (08:30)
[2021-03-03] MEDS: HEPARIN SOD (PORCINE) 5,000 UNIT/ML VIAL SC SCH ×2 (09:13→20:45)
[2021-03-03] MEDS: IRON SUCROSE 100 MG in SODIUM CHLORIDE 0.9% 100 ML 100 ML IV SCH (09:19)
[2021-03-03 09:49] LABS: ABG PCO2 30 mmHg (35-45); ABG PH 7.45 (7.35-7.45); ABG PO2 75 mmHg (80-105)
[2021-03-03 09:50] LABS: ABG HCO3 21 mmol/L (22-26); ABG TCO2 21
[2021-03-03 10:13] LABS: BASOPHILS # (AUTO) 0.1 (0.0-0.1); BASOPHILS % 0.8 % (0.0-1.0); EOSINOPHILS % 0.2 % (0.0-6.0); HEMATOCRIT 28.6 % (38.2-49.6); HEMOGLOBIN 9.7 g/dL (14.0-18.0); LYMPHOCYTES # (AUTO) 0.3 (1.0-3.2); LYMPHOCYTES % 1.8 % (18.0-39.1); MEAN CORPUSCULAR HGB CONC 33.9 g/dL (31-35); MEAN CORPUSCULAR VOLUME 94.4 fL (81-99); MONOCYTES # (AUTO) 0.7 (0.2-0.8); MONOCYTES % 3.9 % (4.4-11.3); NEUTROPHILS # (AUTO) 14.6 (2.1-6.9); NEUTROPHILS % 87.4 % (38.7-80.0); RED BLOOD COUNT 3.03 x10e6/uL (4.3-5.7); RED CELL DISTRIBUTION WIDTH 15.8 % (11.7-14.4)
[2021-03-03 10:25] LABS: PLATELET COUNT 36 x10e3/uL (140-360)
[2021-03-03] MEDS ORDERED: DIGOXIN INJ 0.25 MG/ML 2 ML AMP IV ONE (10:30)
[2021-03-03] MEDS: VANCOMYCIN 1GM/NS 250 ML 250 ML IV SCH (10:43)
[2021-03-03 12:09] LABS: INR 1.83; PROTHROMBIN TIME 21.9 seconds (11.9-14.5)
[2021-03-03] MEDS ORDERED: POTASSIUM CHLORIDE 20MEQ/100ML 200 ML IV ONE (17:00)
[2021-03-03] MEDS ORDERED: VECURONIUM BROMIDE FOR INJ 20 MG VIAL IV NR (19:35)
[2021-03-03] MEDS: CENTRAL TPN FORMULA 1 BAG IV SCH (20:38)
[2021-03-04] VITALS (18 sets, daily range): BP systolic 89–135; BP diastolic 48–62
[2021-03-04] MEDS: ALBUTEROL/IPRATROPIUM 3 ML NEB NEB SCH ×4 (02:10→19:05)
[2021-03-04 04:46] LABS: BASOPHILS # (AUTO) 0.1 (0.0-0.1); BASOPHILS % 0.4 % (0.0-1.0); EOSINOPHILS % 0.2 % (0.0-6.0); HEMATOCRIT 31.2 % (38.2-49.6); HEMOGLOBIN 10.2 g/dL (14.0-18.0); LYMPHOCYTES # (AUTO) 0.5 (1.0-3.2); LYMPHOCYTES % 2.7 % (18.0-39.1); MEAN CORPUSCULAR HEMOGLOBIN 31.9 pg (28-32); MEAN CORPUSCULAR HGB CONC 32.7 g/dL (31-35); MEAN CORPUSCULAR VOLUME 97.5 fL (81-99); MONOCYTES # (AUTO) 0.6 (0.2-0.8); MONOCYTES % 3.2 % (4.4-11.3); NEUTROPHILS # (AUTO) 15.8 (2.1-6.9); NEUTROPHILS % 84.1 % (38.7-80.0); RED CELL DISTRIBUTION WIDTH 16.8 % (11.7-14.4)
[2021-03-04 04:53] LABS: PLATELET COUNT 49 x10e3/uL (140-360)
[2021-03-04 04:57] LABS: INR 1.66; PROTHROMBIN TIME 20.3 seconds (11.9-14.5)
[2021-03-04] MEDS: CEFEPIME 1 GM in SODIUM CHLORIDE 0.9% 50ML 50 ML IV SCH (05:00)
[2021-03-04] MEDS: METOCLOPRAMIDE HCL 10 MG/2ML VIAL IV SCH ×5 (05:00→23:30)
[2021-03-04 05:04] LABS: ALANINE AMINOTRANSFERASE 65 IU/L (0-55); ALBUMIN 1.4 g/dL (3.5-5.0); ALBUMIN/GLOBULIN RATIO 0.4 (0.8-2.0); ALKALINE PHOSPHATASE 61 IU/L (40-150); ANION GAP 13.5 mmol/L (8-16); BLOOD UREA NITROGEN 40 mg/dL (7-26); BUN/CREATININE RATIO 38 (6-25); CALCIUM 7.9 mg/dL (8.4-10.2); CARBON DIOXIDE 19 mmol/L (22-29); CHLORIDE 112 mmol/L (98-107); CREATININE, SERUM 1.05 mg/dL (0.72-1.25); EST GLOMERULAR FILTRATION RATE > 60 ML/MIN (60-); GLUCOSE 106 mg/dL (74-118); POTASSIUM 4.5 mmol/L (3.5-5.1); SODIUM 140 mmol/L (136-145)
[2021-03-04] MEDS: PROPOFOL IV EMULSION 50 ML IV SCH (05:19)
[2021-03-04 06:23] LABS: LYMPHOCYTES % (MANUAL) 1 % (19-48); MONOCYTES % (MANUAL) 4 % (3.4-9.0); NEUTROPHILS % (MANUAL) 95 % (40-74)
[2021-03-04 06:24] LABS: ANISOCYTOSIS SLIGHT; PLATELET ESTIMATE MARKEDLY DECREASED; PLATELET MORPHOLOGY COMMENT NORMAL; RBC MORPHOLOGY COMMENT NORMAL
[2021-03-04] MEDS: ALBUMIN 25% 25GM 100ML 0.25 GM/ML BTL IV SCH ×3 (08:30→23:30)
[2021-03-04 09:00] LABS: ABG HCO3 21 mmol/L (22-26); ABG PCO2 40 mmHg (35-45); ABG PH 7.33 (7.35-7.45); ABG PO2 145 mmHg (80-105); ABG TCO2 22
[2021-03-04] MEDS: MEROPENEM 1GM / NS 100ML 100 ML IV SCH ×2 (09:26→21:12)
[2021-03-04] MEDS: DOCUSATE SODIUM LIQD 100 MG/10 ML UDC NG SCH ×2 (09:27→17:50)
[2021-03-04] MEDS: IRON SUCROSE 100 MG in SODIUM CHLORIDE 0.9% 100 ML 100 ML IV SCH (09:30)
[2021-03-04] MEDS: HEPARIN SOD (PORCINE) 5,000 UNIT/ML VIAL SC SCH ×2 (09:31→21:12)
[2021-03-04] MEDS: EYE LUBRICANT OPTH OINT 3.5GM TUBE OP SCH ×3 (09:50→21:13)
[2021-03-04] MEDS: VANCOMYCIN 1GM/NS 250 ML 250 ML IV SCH (10:55)
[2021-03-04 12:08] LABS: CLARITY,URINE CLOUDY (CLEAR); COLOR,URINE YELLOW (YELLOW); KETONES,URINE NEGATIVE (NEGATIVE); LEUKOCYTE ESTERASE ,URINE NEGATIVE (NEGATIVE); NITRITE,URINE NEGATIVE (NEGATIVE); PROTEIN,URINE DIPSTICK >=300 (NEGATIVE); URINE UROBILINOGEN 0.2 mg/dL (0.2 - 1)
[2021-03-04 12:30] LABS: BACTERIA,URINE FEW /HPF
[2021-03-04] MEDS: BALSAM PERU/CASTOR OIL 60 GM OINT...G. TP SCH (14:45)
[2021-03-04] MEDS: COLLAGENASE 5 GM TUBE TOP SCH (14:45)
[2021-03-04] MEDS ORDERED: LACTATED RINGER'S 1,000 ML INJ ONE (16:00)
[2021-03-04] MEDS: CENTRAL TPN FORMULA 1 BAG IV SCH (21:11)
[2021-03-05] VITALS (26 sets, daily range): BP systolic 112–142; BP diastolic 39–58
[2021-03-05] MEDS: ALBUTEROL/IPRATROPIUM 3 ML NEB NEB SCH ×4 (02:25→19:20)
[2021-03-05 05:54] LABS: BASOPHILS % 0.3 % (0.0-1.0); EOSINOPHILS % 0.3 % (0.0-6.0); HEMATOCRIT 26.5 % (38.2-49.6); HEMOGLOBIN 8.8 g/dL (14.0-18.0); LYMPHOCYTES # (AUTO) 0.4 (1.0-3.2); LYMPHOCYTES % 2.8 % (18.0-39.1); MEAN CORPUSCULAR HGB CONC 33.2 g/dL (31-35); MEAN CORPUSCULAR VOLUME 96.4 fL (81-99); MONOCYTES # (AUTO) 0.6 (0.2-0.8); MONOCYTES % 3.9 % (4.4-11.3); NEUTROPHILS # (AUTO) 11.7 (2.1-6.9); NEUTROPHILS % 82.6 % (38.7-80.0); PLATELET COUNT 60 x10e3/uL (140-360); RED BLOOD COUNT 2.75 x10e6/uL (4.3-5.7); RED CELL DISTRIBUTION WIDTH 17.2 % (11.7-14.4)
[2021-03-05 06:28] LABS: ALBUMIN 2.5 g/dL (3.5-5.0); ANION GAP 14.4 mmol/L (8-16); CALCIUM 8.3 mg/dL (8.4-10.2); POTASSIUM 4.4 mmol/L (3.5-5.1)
[2021-03-05] MEDS: EYE LUBRICANT OPTH OINT 3.5GM TUBE OP SCH ×3 (06:32→22:57)
[2021-03-05] MEDS: METOCLOPRAMIDE HCL 10 MG/2ML VIAL IV SCH ×3 (06:32→17:40)
[2021-03-05 06:44] LABS: AMYLASE 41 U/L (25-125); LIPASE 55 U/L (8-78)
[2021-03-05 06:54] LABS: CREATININE, SERUM 1.81 mg/dL (0.72-1.25)
[2021-03-05 08:21] LABS: BAND NEUTROPHILS % (MANUAL) 8 %; LYMPHOCYTES % (MANUAL) 2 % (19-48); MONOCYTES % (MANUAL) 2 % (3.4-9.0); NEUTROPHILS % (MANUAL) 88 % (40-74)
[2021-03-05 08:22] LABS: PLATELET ESTIMATE MODERATELY DECREASED
[2021-03-05] MEDS: MEROPENEM 1GM / NS 100ML 100 ML IV SCH ×2 (08:34→21:28)
[2021-03-05] MEDS: DOCUSATE SODIUM LIQD 100 MG/10 ML UDC NG SCH ×2 (08:35→17:00)
[2021-03-05] MEDS: HEPARIN SOD (PORCINE) 5,000 UNIT/ML VIAL SC SCH ×2 (08:36→21:33)
[2021-03-05] MEDS: IRON SUCROSE 100 MG in SODIUM CHLORIDE 0.9% 100 ML 100 ML IV SCH (08:37)
[2021-03-05] MEDS: COLLAGENASE 5 GM TUBE TOP SCH (09:00)
[2021-03-05] MEDS ORDERED: SODIUM CHLORIDE 0.9% 1000ML 1,000 ML ONE (11:05)
[2021-03-05 11:28] LABS: ABG HCO3 20 mmol/L (22-26); ABG PCO2 39 mmHg (35-45); ABG PH 7.31 (7.35-7.45); ABG PO2 121 mmHg (80-105); ABG TCO2 21
[2021-03-05] MEDS: PROPOFOL IV EMULSION 50 ML IV SCH ×3 (11:47→20:11)
[2021-03-05] MEDS: BALSAM PERU/CASTOR OIL 60 GM OINT...G. TP SCH (12:10)
[2021-03-05] MEDS: CENTRAL TPN FORMULA 1 BAG IV SCH (20:50)
[2021-03-06] VITALS (26 sets, daily range): BP systolic 102–169; BP diastolic 35–62
[2021-03-06] MEDS: METOCLOPRAMIDE HCL 10 MG/2ML VIAL IV SCH ×5 (00:04→23:51)
[2021-03-06] MEDS: PROPOFOL IV EMULSION 50 ML IV SCH ×3 (01:51→22:42)
[2021-03-06 06:17] LABS: BASOPHILS # (AUTO) 0.1 (0.0-0.1); BASOPHILS % 0.3 % (0.0-1.0); EOSINOPHILS # (AUTO) 0.1 (0.0-0.4); EOSINOPHILS % 0.9 % (0.0-6.0); HEMATOCRIT 27.2 % (38.2-49.6); HEMOGLOBIN 9.1 g/dL (14.0-18.0); LYMPHOCYTES # (AUTO) 0.5 (1.0-3.2); LYMPHOCYTES % 3.4 % (18.0-39.1); MEAN CORPUSCULAR HEMOGLOBIN 31.9 pg (28-32); MEAN CORPUSCULAR HGB CONC 33.5 g/dL (31-35); MEAN CORPUSCULAR VOLUME 95.4 fL (81-99); MONOCYTES # (AUTO) 0.5 (0.2-0.8); MONOCYTES % 3.1 % (4.4-11.3); NEUTROPHILS # (AUTO) 11.6 (2.1-6.9); NEUTROPHILS % 80.1 % (38.7-80.0); PLATELET COUNT 67 x10e3/uL (140-360); RED BLOOD COUNT 2.85 x10e6/uL (4.3-5.7)
[2021-03-06 06:31] LABS: INR 1.43; PROTHROMBIN TIME 18.1 seconds (11.9-14.5)
[2021-03-06 06:32] LABS: PARTIAL THROMBOPLASTIN TIME 47.5 seconds (23.8-35.5)
[2021-03-06 06:45] LABS: ALBUMIN 1.9 g/dL (3.5-5.0); ALBUMIN/GLOBULIN RATIO 0.7 (0.8-2.0); ANION GAP 15.1 mmol/L (8-16); CALCIUM 8.4 mg/dL (8.4-10.2); CREATININE, SERUM 2.41 mg/dL (0.72-1.25); POTASSIUM 4.1 mmol/L (3.5-5.1)
[2021-03-06] MEDS: EYE LUBRICANT OPTH OINT 3.5GM TUBE OP SCH ×3 (06:49→22:11)
[2021-03-06] MEDS: ALBUTEROL/IPRATROPIUM 3 ML NEB NEB SCH ×5 (07:05→22:50)
[2021-03-06] MEDS: IRON SUCROSE 100 MG in SODIUM CHLORIDE 0.9% 100 ML 100 ML IV SCH (08:11)
[2021-03-06] MEDS: DOCUSATE SODIUM LIQD 100 MG/10 ML UDC NG SCH ×2 (08:11→17:00)
[2021-03-06] MEDS: HEPARIN SOD (PORCINE) 5,000 UNIT/ML VIAL SC SCH ×2 (08:51→21:39)
[2021-03-06] MEDS: BALSAM PERU/CASTOR OIL 60 GM OINT...G. TP SCH (09:00)
[2021-03-06] MEDS: COLLAGENASE 5 GM TUBE TOP SCH (09:00)
[2021-03-06] MEDS ORDERED: MEROPENEM 1GM / NS 100ML 100 ML IV SCH (09:00)
[2021-03-06 09:09] LABS: BAND NEUTROPHILS % (MANUAL) 7 %; LYMPHOCYTES % (MANUAL) 2 % (19-48); MONOCYTES % (MANUAL) 2 % (3.4-9.0); NEUTROPHILS % (MANUAL) 89 % (40-74)
[2021-03-06 12:10] LABS: ABG HCO3 18 mmol/L (22-26); ABG PCO2 32 mmHg (35-45); ABG PH 7.35 (7.35-7.45); ABG PO2 104 mmHg (80-105); ABG TCO2 18
[2021-03-06 15:29] LABS: CLARITY,URINE CLOUDY (CLEAR); COLOR,URINE YELLOW (YELLOW); LEUKOCYTE ESTERASE ,URINE NEGATIVE (NEGATIVE); NITRITE,URINE NEGATIVE (NEGATIVE)
[2021-03-06 15:30] LABS: KETONES,URINE NEGATIVE (NEGATIVE); PROTEIN,URINE DIPSTICK 2+ (NEGATIVE); URINE UROBILINOGEN 0.2 mg/dL (0.2 - 1)
[2021-03-06 15:31] LABS: AMORPHOUS SEDIMENT,URINE MANY (FEW); BACTERIA,URINE MODERATE /HPF; EPITHELIAL CELLS,URINE FEW /LPF
[2021-03-06 15:32] LABS: COARSE GRANULAR CASTS,URINE >15 (0); MUCUS,URINE MODERATE (RARE)
[2021-03-06 16:18] LABS: EOSINOPHIL SMEAR,URINE PRESENT (NONE SEEN)
[2021-03-06] MEDS: MEROPENEM 500 MG in SODIUM CHLORIDE 0.9% 50ML 50 ML IV SCH (21:34)
[2021-03-06] MEDS: CENTRAL TPN FORMULA 1 BAG IV SCH (23:30)
[2021-03-07] VITALS (25 sets, daily range): BP systolic 105–164; BP diastolic 45–58
[2021-03-07] MEDS: PROPOFOL IV EMULSION 50 ML IV SCH ×4 (05:24→21:36)
[2021-03-07] MEDS: METOCLOPRAMIDE HCL 10 MG/2ML VIAL IV SCH ×4 (06:06→23:49)
[2021-03-07] MEDS: EYE LUBRICANT OPTH OINT 3.5GM TUBE OP SCH ×3 (06:06→20:31)
[2021-03-07 06:21] LABS: BASOPHILS % 0.2 % (0.0-1.0); EOSINOPHILS # (AUTO) 0.2 (0.0-0.4); EOSINOPHILS % 1.6 % (0.0-6.0); HEMATOCRIT 28.2 % (38.2-49.6); HEMOGLOBIN 9.1 g/dL (14.0-18.0); LYMPHOCYTES # (AUTO) 0.5 (1.0-3.2); LYMPHOCYTES % 3.9 % (18.0-39.1); MEAN CORPUSCULAR HEMOGLOBIN 30.7 pg (28-32); MEAN CORPUSCULAR HGB CONC 32.3 g/dL (31-35); MEAN CORPUSCULAR VOLUME 95.3 fL (81-99); MONOCYTES # (AUTO) 0.3 (0.2-0.8); MONOCYTES % 2.6 % (4.4-11.3); NEUTROPHILS # (AUTO) 10.1 (2.1-6.9); NEUTROPHILS % 78.2 % (38.7-80.0); PLATELET COUNT 82 x10e3/uL (140-360); RED BLOOD COUNT 2.96 x10e6/uL (4.3-5.7); RED CELL DISTRIBUTION WIDTH 16.9 % (11.7-14.4)
[2021-03-07 06:46] LABS: ALBUMIN 1.8 g/dL (3.5-5.0); ALBUMIN/GLOBULIN RATIO 0.6 (0.8-2.0); CALCIUM 8.1 mg/dL (8.4-10.2); CREATININE, SERUM 2.89 mg/dL (0.72-1.25); MAGNESIUM 2.8 MG/DL (1.3-2.1); PHOSPHORUS 3.3 MG/DL (2.3-4.7)
[2021-03-07] MEDS: ALBUTEROL/IPRATROPIUM 3 ML NEB NEB SCH ×4 (07:30→23:55)
[2021-03-07 08:10] LABS: BAND NEUTROPHILS % (MANUAL) 1 %; LYMPHOCYTES % (MANUAL) 6 % (19-48); MONOCYTES % (MANUAL) 2 % (3.4-9.0); NEUTROPHILS % (MANUAL) 91 % (40-74)
[2021-03-07 08:11] LABS: PLATELET ESTIMATE MARKEDLY DECREASED; PLATELET MORPHOLOGY COMMENT NORMAL; RBC MORPHOLOGY COMMENT NORMAL; TOXIC GRANULATION SLIGHT
[2021-03-07] MEDS: MEROPENEM 500 MG in SODIUM CHLORIDE 0.9% 50ML 50 ML IV SCH ×2 (08:47→19:51)
[2021-03-07] MEDS: HEPARIN SOD (PORCINE) 5,000 UNIT/ML VIAL SC SCH ×2 (08:48→20:17)
[2021-03-07] MEDS: DOCUSATE SODIUM LIQD 100 MG/10 ML UDC NG SCH ×2 (08:48→17:44)
[2021-03-07] MEDS ORDERED: DEXTROSE 5%/0.9% SOD CHL 1,000 ML IV SCH (09:00)
[2021-03-07] MEDS: COLLAGENASE 5 GM TUBE TOP SCH (09:57)
[2021-03-07] MEDS: BALSAM PERU/CASTOR OIL 60 GM OINT...G. TP SCH (09:57)
[2021-03-07] MEDS: IRON SUCROSE 100 MG in SODIUM CHLORIDE 0.9% 100 ML 100 ML IV SCH (09:58)
[2021-03-07 11:24] LABS: INR 1.39; PROTHROMBIN TIME 17.7 seconds (11.9-14.5)
[2021-03-07] MEDS: CENTRAL TPN FORMULA 1 BAG IV SCH (17:08)
[2021-03-07] MEDS: DEXTROSE 5%/0.9% SOD CHL 1,000 ML IV SCH (17:44)
[2021-03-07] MEDS ORDERED: ACETAMINOPHEN 1000 MG/100 ML IV PRN (23:45)
[2021-03-07] MEDS: METOPROLOL TARTRATE INJ 1 MG/ML VIAL IV PRN (23:48)
[2021-03-08] VITALS (28 sets, daily range): BP systolic 94–158; BP diastolic 37–51
[2021-03-08] MEDS ORDERED: SODIUM CHLORIDE 0.9% 500ML 500 ML ONE (00:08)
[2021-03-08 03:33] LABS: BASOPHILS # (AUTO) 0.1 (0.0-0.1); BASOPHILS % 1.3 % (0.0-1.0); EOSINOPHILS # (AUTO) 0.3 (0.0-0.4); EOSINOPHILS % 3.3 % (0.0-6.0); HEMATOCRIT 23.8 % (38.2-49.6); HEMOGLOBIN 7.4 g/dL (14.0-18.0); LYMPHOCYTES # (AUTO) 1.9 (1.0-3.2); LYMPHOCYTES % 24.7 % (18.0-39.1); MEAN CORPUSCULAR HEMOGLOBIN 27.8 pg (28-32); MEAN CORPUSCULAR HGB CONC 31.1 g/dL (31-35); MEAN CORPUSCULAR VOLUME 89.5 fL (81-99); MONOCYTES # (AUTO) 1.4 (0.2-0.8); MONOCYTES % 18.1 % (4.4-11.3); NEUTROPHILS # (AUTO) 3.8 (2.1-6.9); NEUTROPHILS % 50.9 % (38.7-80.0); PLATELET COUNT 156 x10e3/uL (140-360); RED BLOOD COUNT 2.66 x10e6/uL (4.3-5.7); RED CELL DISTRIBUTION WIDTH 18.1 % (11.7-14.4)
[2021-03-08 03:37] LABS: CALCIUM IONIZED 1.1 mmol/L (1.09-1.30)
[2021-03-08 03:42] LABS: INR 1.21
[2021-03-08 03:43] LABS: PARTIAL THROMBOPLASTIN TIME 47.2 seconds (23.8-35.5)
[2021-03-08 03:53] LABS: ALBUMIN 2.2 g/dL (3.5-5.0); ALBUMIN/GLOBULIN RATIO 0.5 (0.8-2.0); ANION GAP 11.9 mmol/L (8-16); CALCIUM 7.3 mg/dL (8.4-10.2); CREATININE, SERUM 3.03 mg/dL (0.72-1.25); MAGNESIUM 1.6 MG/DL (1.3-2.1); PHOSPHORUS 2.3 MG/DL (2.3-4.7); POTASSIUM 3.9 mmol/L (3.5-5.1)
[2021-03-08] MEDS ORDERED: SODIUM CHLORIDE 0.9% 250ML 250 ML IV ONE (04:45)
[2021-03-08] MEDS ORDERED: DIPHENHYDRAMINE HCL INJ 50 MG/ML VIAL IV ONE ×2 (04:45→05:15)
[2021-03-08] MEDS: METOCLOPRAMIDE HCL 10 MG/2ML VIAL IV SCH ×3 (04:48→18:19)
[2021-03-08] MEDS: EYE LUBRICANT OPTH OINT 3.5GM TUBE OP SCH ×3 (04:49→22:34)
[2021-03-08] MEDS: DEXTROSE 5%/0.9% SOD CHL 1,000 ML IV SCH (04:49)
[2021-03-08] MEDS ORDERED: SODIUM CHLORIDE 0.9% 250ML 250 ML IV PRN (05:15)
[2021-03-08] MEDS ORDERED: DIPHENHYDRAMINE HCL INJ 50 MG/ML VIAL IV PRN (05:30)
[2021-03-08] MEDS: PROPOFOL IV EMULSION 50 ML IV SCH ×2 (05:39→23:00)
[2021-03-08] MEDS: ALBUTEROL/IPRATROPIUM 3 ML NEB NEB SCH ×3 (07:34→19:35)
[2021-03-08] MEDS: HEPARIN SOD (PORCINE) 5,000 UNIT/ML VIAL SC SCH (09:00)
[2021-03-08] MEDS: BALSAM PERU/CASTOR OIL 60 GM OINT...G. TP SCH (09:50)
[2021-03-08] MEDS: COLLAGENASE 5 GM TUBE TOP SCH (09:50)
[2021-03-08] MEDS: IRON SUCROSE 100 MG in SODIUM CHLORIDE 0.9% 100 ML 100 ML IV SCH (10:07)
[2021-03-08] MEDS: MEROPENEM 500 MG in SODIUM CHLORIDE 0.9% 50ML 50 ML IV SCH ×2 (10:07→21:17)
[2021-03-08] MEDS: DOCUSATE SODIUM LIQD 100 MG/10 ML UDC NG SCH ×2 (10:07→17:00)
[2021-03-08 14:55] LABS: ABG HCO3 16 mmol/L (22-26); ABG PCO2 36 mmHg (35-45); ABG PH 7.27 (7.35-7.45); ABG PO2 118 mmHg (80-105); ABG TCO2 17
[2021-03-08] MEDS ORDERED: CALCIUM CARBONATE 500 MG CHEWABLE TABS PO SCH (15:00)
[2021-03-08] MEDS ORDERED: SODIUM PHOSPHATE 15 MMOL in SODIUM CHLORIDE 0.9% 250ML 250 ML INJ ONE (15:00)
[2021-03-08] MEDS ORDERED: MAGNESIUM SULFATE 2GM/50ML 50 ML IV ONE (15:00)
[2021-03-08] MEDS ORDERED: CALCIUM CHLORIDE 13.6 MEQ in SODIUM CHLORIDE 0.9% 100 ML 100 ML IV ONE (16:00)
[2021-03-08] MEDS ORDERED: SODIUM CHLORIDE 0.9% 250ML 250 ML ONE (16:04)
[2021-03-08] MEDS: CENTRAL TPN FORMULA 1 BAG IV SCH (18:50)
[2021-03-08 19:49] LABS: ABG HCO3 -12 mmol/L (22-26); ABG PCO2 35 mmHg (35-45); ABG PH 7.25 (7.35-7.45); ABG PO2 126 mmHg (80-105); ABG TCO2 17
[2021-03-08 20:26] LABS: BASOPHILS % 0.4 % (0.0-1.0); EOSINOPHILS # (AUTO) 0.1 (0.0-0.4); EOSINOPHILS % 1.4 % (0.0-6.0); HEMATOCRIT 28.4 % (38.2-49.6); LYMPHOCYTES # (AUTO) 0.5 (1.0-3.2); LYMPHOCYTES % 4.8 % (18.0-39.1); MEAN CORPUSCULAR HEMOGLOBIN 30.9 pg (28-32); MEAN CORPUSCULAR HGB CONC 31.7 g/dL (31-35); MEAN CORPUSCULAR VOLUME 97.6 fL (81-99); MONOCYTES # (AUTO) 0.3 (0.2-0.8); MONOCYTES % 3.2 % (4.4-11.3); NEUTROPHILS # (AUTO) 7.8 (2.1-6.9); NEUTROPHILS % 75.7 % (38.7-80.0); PLATELET COUNT 87 x10e3/uL (140-360); RED BLOOD COUNT 2.91 x10e6/uL (4.3-5.7)
[2021-03-08 21:44] LABS: EOSINOPHILS % (MANUAL) 1 % (0-7); LYMPHOCYTES % (MANUAL) 4 % (19-48); MONOCYTES % (MANUAL) 2 % (3.4-9.0); NEUTROPHILS % (MANUAL) 93 % (40-74); PLATELET MORPHOLOGY COMMENT NORMAL; RBC MORPHOLOGY COMMENT NORMAL
[2021-03-08 21:45] LABS: PLATELET ESTIMATE MODERATELY DECREASED
[2021-03-09] VITALS (26 sets, daily range): BP systolic 38–168; BP diastolic 38–64
[2021-03-09] MEDS: METOCLOPRAMIDE HCL 10 MG/2ML VIAL IV SCH ×4 (00:08→18:02)
[2021-03-09] MEDS: ALBUTEROL/IPRATROPIUM 3 ML NEB NEB SCH ×4 (02:30→19:45)
[2021-03-09] MEDS: DEXTROSE 5%/0.9% SOD CHL 1,000 ML IV SCH ×2 (03:23→09:32)
[2021-03-09 04:43] LABS: BASOPHILS % 0.3 % (0.0-1.0); EOSINOPHILS # (AUTO) 0.2 (0.0-0.4); EOSINOPHILS % 1.9 % (0.0-6.0); HEMATOCRIT 28.5 % (38.2-49.6); HEMOGLOBIN 9.4 g/dL (14.0-18.0); LYMPHOCYTES # (AUTO) 0.5 (1.0-3.2); LYMPHOCYTES % 5.4 % (18.0-39.1); MEAN CORPUSCULAR VOLUME 96.9 fL (81-99); MONOCYTES # (AUTO) 0.3 (0.2-0.8); MONOCYTES % 3.1 % (4.4-11.3); NEUTROPHILS # (AUTO) 7.5 (2.1-6.9); PLATELET COUNT 91 x10e3/uL (140-360); RED BLOOD COUNT 2.94 x10e6/uL (4.3-5.7); RED CELL DISTRIBUTION WIDTH 16.9 % (11.7-14.4)
[2021-03-09] MEDS: PROPOFOL IV EMULSION 50 ML IV SCH ×3 (05:00→22:45)
[2021-03-09 05:02] LABS: ALBUMIN 1.6 g/dL (3.5-5.0); ALBUMIN/GLOBULIN RATIO 0.5 (0.8-2.0); ANION GAP 17.8 mmol/L (8-16); CALCIUM 7.9 mg/dL (8.4-10.2); CREATININE, SERUM 3.67 mg/dL (0.72-1.25); POTASSIUM 3.8 mmol/L (3.5-5.1)
[2021-03-09] MEDS: EYE LUBRICANT OPTH OINT 3.5GM TUBE OP SCH ×3 (06:07→22:04)
[2021-03-09 06:09] LABS: EOSINOPHILS % (MANUAL) 1 % (0-7); HYPOCHROMASIA SLIGHT; LYMPHOCYTES % (MANUAL) 8 % (19-48); MICROCYTOSIS SLIGHT; MONOCYTES % (MANUAL) 1 % (3.4-9.0); NEUTROPHILS % (MANUAL) 89 % (40-74); PLATELET ESTIMATE MODERATELY DECREASED; PLATELET MORPHOLOGY COMMENT NORMAL; PROMYELOCYTES % (MANUAL) 1 % (0-0)
[2021-03-09] MEDS: MEROPENEM 500 MG in SODIUM CHLORIDE 0.9% 50ML 50 ML IV SCH ×2 (09:32→20:05)
[2021-03-09] MEDS: IRON SUCROSE 100 MG in SODIUM CHLORIDE 0.9% 100 ML 100 ML IV SCH (09:37)
[2021-03-09] MEDS: DOCUSATE SODIUM LIQD 100 MG/10 ML UDC NG SCH ×2 (09:37→18:02)
[2021-03-09] MEDS: COLLAGENASE 5 GM TUBE TOP SCH (09:37)
[2021-03-09] MEDS: BALSAM PERU/CASTOR OIL 60 GM OINT...G. TP SCH (09:38)
[2021-03-09 09:54] LABS: ABG HCO3 15 mmol/L (22-26); ABG PCO2 35 mmHg (35-45); ABG PH 7.25 (7.35-7.45); ABG PO2 128 mmHg (80-105); ABG TCO2 16
[2021-03-09] MEDS ORDERED: SODIUM BICARBONATE 8.4% INJ 50 ML SYR IV ONE (10:30)
[2021-03-09] MEDS: SODIUM BICARBONATE 8.4% 150 ML in DEXTROSE 5% 1,000 ML IV SCH (11:10)
[2021-03-09] MEDS: CENTRAL TPN FORMULA 1 BAG IV SCH (17:48)
[2021-03-10] VITALS (26 sets, daily range): BP systolic 119–163; BP diastolic 43–58
[2021-03-10] MEDS: ALBUTEROL/IPRATROPIUM 3 ML NEB NEB SCH ×4 (00:05→19:55)
[2021-03-10] MEDS: METOCLOPRAMIDE HCL 10 MG/2ML VIAL IV SCH ×4 (00:09→16:53)
[2021-03-10] MEDS: SODIUM BICARBONATE 8.4% 150 ML in DEXTROSE 5% 1,000 ML IV SCH ×2 (02:20→16:53)
[2021-03-10] MEDS: PROPOFOL IV EMULSION 50 ML IV SCH ×4 (03:26→22:14)
[2021-03-10 04:58] LABS: BASOPHILS % 0.5 % (0.0-1.0); EOSINOPHILS # (AUTO) 0.2 (0.0-0.4); EOSINOPHILS % 2.7 % (0.0-6.0); HEMATOCRIT 26.7 % (38.2-49.6); HEMOGLOBIN 8.8 g/dL (14.0-18.0); LYMPHOCYTES # (AUTO) 0.5 (1.0-3.2); LYMPHOCYTES % 6.4 % (18.0-39.1); MEAN CORPUSCULAR HEMOGLOBIN 30.9 pg (28-32); MONOCYTES # (AUTO) 0.3 (0.2-0.8); MONOCYTES % 3.9 % (4.4-11.3); NEUTROPHILS # (AUTO) 5.8 (2.1-6.9); NEUTROPHILS % 69.9 % (38.7-80.0); PLATELET COUNT 81 x10e3/uL (140-360); RED BLOOD COUNT 2.85 x10e6/uL (4.3-5.7); RED CELL DISTRIBUTION WIDTH 16.7 % (11.7-14.4)
[2021-03-10 05:07] LABS: MEAN CORPUSCULAR VOLUME 93.7 fL (81-99)
[2021-03-10 05:18] LABS: ALBUMIN 1.4 g/dL (3.5-5.0); ALBUMIN/GLOBULIN RATIO 0.4 (0.8-2.0); ANION GAP 17.2 mmol/L (8-16); CALCIUM 7.4 mg/dL (8.4-10.2); CREATININE, SERUM 3.89 mg/dL (0.72-1.25); POTASSIUM 3.2 mmol/L (3.5-5.1)
[2021-03-10] MEDS: EYE LUBRICANT OPTH OINT 3.5GM TUBE OP SCH ×3 (05:36→21:32)
[2021-03-10 07:46] LABS: EOSINOPHILS % (MANUAL) 1 % (0-7); LYMPHOCYTES % (MANUAL) 8 % (19-48); MONOCYTES % (MANUAL) 1 % (3.4-9.0); NEUTROPHILS % (MANUAL) 90 % (40-74); PLATELET ESTIMATE MODERATELY DECREASED
[2021-03-10 07:47] LABS: PLATELET MORPHOLOGY COMMENT FEW LARGE; RBC MORPHOLOGY COMMENT NORMAL
[2021-03-10 07:48] LABS: GIANT PLATELETS RARE
[2021-03-10] MEDS: DOCUSATE SODIUM LIQD 100 MG/10 ML UDC NG SCH ×2 (08:18→16:52)
[2021-03-10] MEDS: IRON SUCROSE 100 MG in SODIUM CHLORIDE 0.9% 100 ML 100 ML IV SCH (08:18)
[2021-03-10] MEDS: COLLAGENASE 5 GM TUBE TOP SCH (08:18)
[2021-03-10] MEDS: MEROPENEM 500 MG in SODIUM CHLORIDE 0.9% 50ML 50 ML IV SCH ×2 (08:18→21:32)
[2021-03-10] MEDS: BALSAM PERU/CASTOR OIL 60 GM OINT...G. TP SCH (08:18)
[2021-03-10 10:46] LABS: ABG PCO2 36 mmHg (35-45); ABG PH 7.39 (7.35-7.45)
[2021-03-10 10:47] LABS: ABG HCO3 22 mmol/L (22-26); ABG PO2 112 mmHg (80-105); ABG TCO2 23
[2021-03-10] MEDS ORDERED: POTASSIUM CHLORIDE 20MEQ/100ML 200 ML IV ONE (14:15)
[2021-03-10] MEDS: CENTRAL TPN FORMULA 1 BAG IV SCH (19:08)
[2021-03-11] VITALS (28 sets, daily range): BP systolic 111–152; BP diastolic 46–65
[2021-03-11] MEDS: ALBUTEROL/IPRATROPIUM 3 ML NEB NEB SCH ×4 (00:20→20:10)
[2021-03-11] MEDS: METOCLOPRAMIDE HCL 10 MG/2ML VIAL IV SCH ×4 (00:35→18:00)
[2021-03-11] MEDS: PROPOFOL IV EMULSION 50 ML IV SCH ×3 (03:29→22:52)
[2021-03-11 05:33] LABS: BASOPHILS % 0.5 % (0.0-1.0); EOSINOPHILS # (AUTO) 0.1 (0.0-0.4); EOSINOPHILS % 2.3 % (0.0-6.0); HEMOGLOBIN 8.6 g/dL (14.0-18.0); LYMPHOCYTES # (AUTO) 0.5 (1.0-3.2); LYMPHOCYTES % 7.8 % (18.0-39.1); MEAN CORPUSCULAR HEMOGLOBIN 31.2 pg (28-32); MEAN CORPUSCULAR HGB CONC 34.4 g/dL (31-35); MONOCYTES # (AUTO) 0.3 (0.2-0.8); MONOCYTES % 5.2 % (4.4-11.3); NEUTROPHILS # (AUTO) 3.8 (2.1-6.9); NEUTROPHILS % 61.3 % (38.7-80.0); PLATELET COUNT 80 x10e3/uL (140-360); RED BLOOD COUNT 2.76 x10e6/uL (4.3-5.7)
[2021-03-11 05:44] LABS: MEAN CORPUSCULAR VOLUME 90.6 fL (81-99)
[2021-03-11 06:04] LABS: ALBUMIN 1.3 g/dL (3.5-5.0); ALBUMIN/GLOBULIN RATIO 0.4 (0.8-2.0); ALKALINE PHOSPHATASE 49 IU/L (40-150); ANION GAP 17.2 mmol/L (8-16); BLOOD UREA NITROGEN 120 mg/dL (7-26); BUN/CREATININE RATIO 29 (6-25); CALCIUM 7.1 mg/dL (8.4-10.2); CARBON DIOXIDE 24 mmol/L (22-29); CHLORIDE 107 mmol/L (98-107); EST GLOMERULAR FILTRATION RATE 14 ML/MIN (60-); GLUCOSE 111 mg/dL (74-118); POTASSIUM 3.2 mmol/L (3.5-5.1); SODIUM 145 mmol/L (136-145)
[2021-03-11 06:11] LABS: ALANINE AMINOTRANSFERASE < 6 IU/L (0-55)
[2021-03-11] MEDS: EYE LUBRICANT OPTH OINT 3.5GM TUBE OP SCH ×3 (06:54→21:20)
[2021-03-11 07:28] LABS: EOSINOPHILS % (MANUAL) 2 % (0-7); LYMPHOCYTES % (MANUAL) 6 % (19-48); METAMYELOCYTES % (MANUAL) 1 % (0-0); MONOCYTES % (MANUAL) 3 % (3.4-9.0); NEUTROPHILS % (MANUAL) 86 % (40-74)
[2021-03-11] MEDS: IRON SUCROSE 100 MG in SODIUM CHLORIDE 0.9% 100 ML 100 ML IV SCH (08:17)
[2021-03-11] MEDS: SODIUM BICARBONATE 8.4% 150 ML in DEXTROSE 5% 1,000 ML IV SCH (08:17)
[2021-03-11] MEDS: MEROPENEM 500 MG in SODIUM CHLORIDE 0.9% 50ML 50 ML IV SCH ×2 (09:00→21:20)
[2021-03-11] MEDS: DOCUSATE SODIUM LIQD 100 MG/10 ML UDC NG SCH ×2 (09:00→17:00)
[2021-03-11 09:39] LABS: ABG HCO3 26 mmol/L (22-26); ABG PCO2 35 mmHg (35-45); ABG PH 7.47 (7.35-7.45); ABG PO2 85 mmHg (80-105); ABG TCO2 27
[2021-03-11] MEDS: BALSAM PERU/CASTOR OIL 60 GM OINT...G. TP SCH (10:03)
[2021-03-11] MEDS: COLLAGENASE 5 GM TUBE TOP SCH (10:03)
[2021-03-11] MEDS: CENTRAL TPN FORMULA 1 BAG IV SCH (18:40)
[2021-03-11] MEDS ORDERED: POTASSIUM CHLORIDE 20MEQ/100ML 200 ML IV ONE (18:45)
[2021-03-12] VITALS (26 sets, daily range): BP systolic 105–160; BP diastolic 41–69
[2021-03-12] MEDS: METOCLOPRAMIDE HCL 10 MG/2ML VIAL IV SCH ×4 (00:01→18:08)
[2021-03-12] MEDS: SODIUM BICARBONATE 8.4% 150 ML in DEXTROSE 5% 1,000 ML IV SCH (00:01)
[2021-03-12] MEDS: ALBUTEROL/IPRATROPIUM 3 ML NEB NEB SCH ×4 (00:05→18:59)
[2021-03-12] MEDS: PROPOFOL IV EMULSION 50 ML IV SCH ×4 (02:53→16:34)
[2021-03-12 05:35] LABS: BASOPHILS % 0.8 % (0.0-1.0); EOSINOPHILS # (AUTO) 0.1 (0.0-0.4); EOSINOPHILS % 2.5 % (0.0-6.0); HEMATOCRIT 26.4 % (38.2-49.6); HEMOGLOBIN 8.7 g/dL (14.0-18.0); LYMPHOCYTES # (AUTO) 0.5 (1.0-3.2); LYMPHOCYTES % 9.6 % (18.0-39.1); MEAN CORPUSCULAR HEMOGLOBIN 31.3 pg (28-32); MONOCYTES # (AUTO) 0.3 (0.2-0.8); MONOCYTES % 5.5 % (4.4-11.3); NEUTROPHILS # (AUTO) 3.1 (2.1-6.9); NEUTROPHILS % 59.4 % (38.7-80.0); RED BLOOD COUNT 2.78 x10e6/uL (4.3-5.7); RED CELL DISTRIBUTION WIDTH 16.3 % (11.7-14.4)
[2021-03-12 05:48] LABS: PLATELET COUNT 70 x10e3/uL (140-360)
[2021-03-12 05:58] LABS: ALBUMIN 1.4 g/dL (3.5-5.0); ALBUMIN/GLOBULIN RATIO 0.4 (0.8-2.0); ALKALINE PHOSPHATASE 52 IU/L (40-150); ANION GAP 19.5 mmol/L (8-16); BLOOD UREA NITROGEN 108 mg/dL (7-26); BUN/CREATININE RATIO 26 (6-25); CALCIUM 7.1 mg/dL (8.4-10.2); CARBON DIOXIDE 22 mmol/L (22-29); CHLORIDE 103 mmol/L (98-107); CREATININE, SERUM 4.14 mg/dL (0.72-1.25); EST GLOMERULAR FILTRATION RATE 14 ML/MIN (60-); GLUCOSE 103 mg/dL (74-118); POTASSIUM 3.5 mmol/L (3.5-5.1); SODIUM 141 mmol/L (136-145)
[2021-03-12 06:07] LABS: ALANINE AMINOTRANSFERASE < 6 IU/L (0-55)
[2021-03-12] MEDS: EYE LUBRICANT OPTH OINT 3.5GM TUBE OP SCH ×3 (06:27→20:53)
[2021-03-12] MEDS: BALSAM PERU/CASTOR OIL 60 GM OINT...G. TP SCH (08:28)
[2021-03-12] MEDS: COLLAGENASE 5 GM TUBE TOP SCH (08:28)
[2021-03-12] MEDS: IRON SUCROSE 100 MG in SODIUM CHLORIDE 0.9% 100 ML 100 ML IV SCH (09:14)
[2021-03-12] MEDS: MEROPENEM 500 MG in SODIUM CHLORIDE 0.9% 50ML 50 ML IV SCH ×2 (09:14→20:53)
[2021-03-12] MEDS: DOCUSATE SODIUM LIQD 100 MG/10 ML UDC NG SCH ×2 (09:14→18:07)
[2021-03-12 12:49] LABS: BAND NEUTROPHILS % (MANUAL) 16 %; EOSINOPHILS % (MANUAL) 2 % (0-7); LYMPHOCYTES % (MANUAL) 7 % (19-48); MONOCYTES % (MANUAL) 4 % (3.4-9.0); NEUTROPHILS % (MANUAL) 71 % (40-74)
[2021-03-12 16:18] LABS: ABG PCO2 34 mmHg (35-45); ABG PH 7.53 (7.35-7.45)
[2021-03-12 16:19] LABS: ABG HCO3 29 mmol/L (22-26); ABG PO2 85 mmHg (80-105); ABG TCO2 30
[2021-03-12] MEDS: CENTRAL TPN FORMULA 1 BAG IV SCH (18:08)
[2021-03-12] MEDS: HEPARIN SOD (PORCINE) 5,000 UNIT/ML VIAL SC SCH (20:21)
[2021-03-12] MEDS ORDERED: SODIUM CHLORIDE 0.9% 250ML 250 ML ONE (20:46)
[2021-03-13] VITALS (27 sets, daily range): BP systolic 105–164; BP diastolic 43–59
[2021-03-13] MEDS: METOCLOPRAMIDE HCL 10 MG/2ML VIAL IV SCH ×4 (00:23→17:46)
[2021-03-13] MEDS: ALBUTEROL/IPRATROPIUM 3 ML NEB NEB SCH ×5 (02:00→23:25)
[2021-03-13] MEDS: PROPOFOL IV EMULSION 50 ML IV SCH ×4 (03:47→17:47)
[2021-03-13 05:14] LABS: BASOPHILS % 0.6 % (0.0-1.0); EOSINOPHILS # (AUTO) 0.1 (0.0-0.4); EOSINOPHILS % 2.3 % (0.0-6.0); HEMATOCRIT 25.1 % (38.2-49.6); HEMOGLOBIN 8.4 g/dL (14.0-18.0); LYMPHOCYTES # (AUTO) 0.5 (1.0-3.2); LYMPHOCYTES % 9.3 % (18.0-39.1); MEAN CORPUSCULAR HEMOGLOBIN 31.1 pg (28-32); MEAN CORPUSCULAR HGB CONC 33.5 g/dL (31-35); MONOCYTES # (AUTO) 0.3 (0.2-0.8); MONOCYTES % 6.2 % (4.4-11.3); NEUTROPHILS # (AUTO) 2.8 (2.1-6.9); NEUTROPHILS % 52.9 % (38.7-80.0); PLATELET COUNT 98 x10e3/uL (140-360); RED CELL DISTRIBUTION WIDTH 15.9 % (11.7-14.4)
[2021-03-13 05:35] LABS: ALBUMIN 1.2 g/dL (3.5-5.0); ALBUMIN/GLOBULIN RATIO 0.3 (0.8-2.0); ALKALINE PHOSPHATASE 54 IU/L (40-150); ANION GAP 18.8 mmol/L (8-16); BLOOD UREA NITROGEN 116 mg/dL (7-26); BUN/CREATININE RATIO 27 (6-25); CALCIUM 7.1 mg/dL (8.4-10.2); CARBON DIOXIDE 27 mmol/L (22-29); CHLORIDE 98 mmol/L (98-107); CREATININE, SERUM 4.31 mg/dL (0.72-1.25); EST GLOMERULAR FILTRATION RATE 14 ML/MIN (60-); GLUCOSE 96 mg/dL (74-118); SODIUM 141 mmol/L (136-145)
[2021-03-13 05:44] LABS: ALANINE AMINOTRANSFERASE < 6 IU/L (0-55); POTASSIUM 2.8 mmol/L (3.5-5.1)
[2021-03-13] MEDS: EYE LUBRICANT OPTH OINT 3.5GM TUBE OP SCH ×3 (05:53→21:20)
[2021-03-13] MEDS ORDERED: POTASSIUM CHLORIDE 20MEQ/100ML 100 ML IV STA (06:08)
[2021-03-13] MEDS: DOCUSATE SODIUM LIQD 100 MG/10 ML UDC NG SCH ×2 (08:51→16:50)
[2021-03-13] MEDS: MEROPENEM 500 MG in SODIUM CHLORIDE 0.9% 50ML 50 ML IV SCH ×2 (08:51→21:15)
[2021-03-13] MEDS: HEPARIN SOD (PORCINE) 5,000 UNIT/ML VIAL SC SCH ×2 (08:52→21:16)
[2021-03-13] MEDS: BALSAM PERU/CASTOR OIL 60 GM OINT...G. TP SCH (08:53)
[2021-03-13] MEDS: COLLAGENASE 5 GM TUBE TOP SCH (08:53)
[2021-03-13 09:36] LABS: BAND NEUTROPHILS % (MANUAL) 4 %; EOSINOPHILS % (MANUAL) 2 % (0-7); LYMPHOCYTES % (MANUAL) 8 % (19-48); MONOCYTES % (MANUAL) 5 % (3.4-9.0); NEUTROPHILS % (MANUAL) 81 % (40-74)
[2021-03-13] MEDS ORDERED: POTASSIUM CHLORIDE 20MEQ/100ML 200 ML IV ONE (14:45)
[2021-03-13 15:40] LABS: ABG HCO3 28 mmol/L (22-26); ABG PCO2 35 mmHg (35-45); ABG PH 7.51 (7.35-7.45); ABG PO2 92 mmHg (80-105); ABG TCO2 29
[2021-03-13] MEDS: CENTRAL TPN FORMULA 1 BAG IV SCH (18:53)
[2021-03-14] VITALS (25 sets, daily range): BP systolic 96–152; BP diastolic 46–71
[2021-03-14] MEDS: PROPOFOL IV EMULSION 50 ML IV SCH ×3 (05:00→10:39)
[2021-03-14 05:45] LABS: BASOPHILS % 0.6 % (0.0-1.0); EOSINOPHILS # (AUTO) 0.1 (0.0-0.4); EOSINOPHILS % 2.6 % (0.0-6.0); HEMATOCRIT 24.1 % (38.2-49.6); HEMOGLOBIN 8.1 g/dL (14.0-18.0); LYMPHOCYTES # (AUTO) 0.4 (1.0-3.2); LYMPHOCYTES % 7.6 % (18.0-39.1); MEAN CORPUSCULAR HEMOGLOBIN 30.9 pg (28-32); MEAN CORPUSCULAR HGB CONC 33.6 g/dL (31-35); MONOCYTES # (AUTO) 0.3 (0.2-0.8); MONOCYTES % 6.9 % (4.4-11.3); NEUTROPHILS # (AUTO) 2.3 (2.1-6.9); NEUTROPHILS % 48.8 % (38.7-80.0); PLATELET COUNT 112 x10e3/uL (140-360); RED BLOOD COUNT 2.62 x10e6/uL (4.3-5.7); RED CELL DISTRIBUTION WIDTH 15.9 % (11.7-14.4)
[2021-03-14 06:05] LABS: ALBUMIN 1.2 g/dL (3.5-5.0); ALBUMIN/GLOBULIN RATIO 0.3 (0.8-2.0); ALKALINE PHOSPHATASE 55 IU/L (40-150); ANION GAP 16.3 mmol/L (8-16); BLOOD UREA NITROGEN 111 mg/dL (7-26); BUN/CREATININE RATIO 26 (6-25); CALCIUM 7.2 mg/dL (8.4-10.2); CARBON DIOXIDE 26 mmol/L (22-29); CHLORIDE 101 mmol/L (98-107); CREATININE, SERUM 4.35 mg/dL (0.72-1.25); EST GLOMERULAR FILTRATION RATE 14 ML/MIN (60-); GLUCOSE 100 mg/dL (74-118); POTASSIUM 3.3 mmol/L (3.5-5.1); SODIUM 140 mmol/L (136-145)
[2021-03-14 06:06] LABS: ALANINE AMINOTRANSFERASE < 6 IU/L (0-55)
[2021-03-14] MEDS: EYE LUBRICANT OPTH OINT 3.5GM TUBE OP SCH ×3 (06:19→22:28)
[2021-03-14] MEDS: METOCLOPRAMIDE HCL 10 MG/2ML VIAL IV SCH ×5 (06:19→23:57)
[2021-03-14] MEDS: ALBUTEROL/IPRATROPIUM 3 ML NEB NEB SCH ×3 (07:00→19:37)
[2021-03-14 08:43] LABS: BAND NEUTROPHILS % (MANUAL) 2 %; EOSINOPHILS % (MANUAL) 6 % (0-7); LYMPHOCYTES % (MANUAL) 9 % (19-48); MONOCYTES % (MANUAL) 7 % (3.4-9.0); NEUTROPHILS % (MANUAL) 76 % (40-74); PLATELET ESTIMATE SLIGHTLY DECREASED
[2021-03-14] MEDS: HEPARIN SOD (PORCINE) 5,000 UNIT/ML VIAL SC SCH ×2 (08:44→20:49)
[2021-03-14] MEDS: DOCUSATE SODIUM LIQD 100 MG/10 ML UDC NG SCH ×2 (08:44→17:00)
[2021-03-14] MEDS: MEROPENEM 500 MG in SODIUM CHLORIDE 0.9% 50ML 50 ML IV SCH ×2 (08:44→21:02)
[2021-03-14 08:45] LABS: ANISOCYTOSIS SLIGHT; PLATELET MORPHOLOGY COMMENT FEW GIANT
[2021-03-14 08:46] LABS: POIKILOCYTOSIS SLIGHT; RBC MORPHOLOGY COMMENT ABNORMAL
[2021-03-14 09:25] LABS: MAGNESIUM 1.9 MG/DL (1.3-2.1)
[2021-03-14] MEDS: COLLAGENASE 5 GM TUBE TOP SCH (10:38)
[2021-03-14] MEDS: BALSAM PERU/CASTOR OIL 60 GM OINT...G. TP SCH (10:38)
[2021-03-14] MEDS: FLUCONAZOLE 100 MG/NS 50 ML 50 ML IV SCH (11:58)
[2021-03-14] MEDS ORDERED: POTASSIUM CHLORIDE 20MEQ/100ML 200 ML IV ONE (13:45)
[2021-03-14] MEDS: NYSTATIN 15 GM POWDER UD BTL TOP SCH (17:00)
[2021-03-14] MEDS: LORAZEPAM INJ 2 MG/ML VIAL IV PRN (19:21)
[2021-03-14] MEDS: CENTRAL TPN FORMULA 1 BAG IV SCH (19:54)
[2021-03-15] VITALS (26 sets, daily range): BP systolic 46–151; BP diastolic 30–67
[2021-03-15] MEDS: ALBUTEROL/IPRATROPIUM 3 ML NEB NEB SCH ×4 (00:30→19:25)
[2021-03-15] MEDS: PROPOFOL IV EMULSION 50 ML IV SCH ×4 (00:44→23:47)
[2021-03-15] MEDS: LORAZEPAM INJ 2 MG/ML VIAL IV PRN (01:13)
[2021-03-15] MEDS: FENTANYL 2000MCG/NS 250 250 ML IV SCH (02:21)
[2021-03-15] MEDS: EYE LUBRICANT OPTH OINT 3.5GM TUBE OP SCH ×3 (05:44→21:52)
[2021-03-15] MEDS: METOCLOPRAMIDE HCL 10 MG/2ML VIAL IV SCH ×3 (05:44→18:13)
[2021-03-15 06:14] LABS: BASOPHILS % 0.7 % (0.0-1.0); HEMATOCRIT 30.6 % (38.2-49.6); HEMOGLOBIN 10.1 g/dL (14.0-18.0); LYMPHOCYTES # (AUTO) 0.3 (1.0-3.2); MEAN CORPUSCULAR HEMOGLOBIN 30.7 pg (28-32); MONOCYTES # (AUTO) 0.2 (0.2-0.8); MONOCYTES % 5.3 % (4.4-11.3); NEUTROPHILS # (AUTO) 2.4 (2.1-6.9); NEUTROPHILS % 54.3 % (38.7-80.0); PLATELET COUNT 164 x10e3/uL (140-360); RED BLOOD COUNT 3.29 x10e6/uL (4.3-5.7); RED CELL DISTRIBUTION WIDTH 15.9 % (11.7-14.4)
[2021-03-15 06:55] LABS: ALBUMIN 1.1 g/dL (3.5-5.0); ALBUMIN/GLOBULIN RATIO 0.3 (0.8-2.0); ALKALINE PHOSPHATASE 57 IU/L (40-150); ANION GAP 21.7 mmol/L (8-16); BLOOD UREA NITROGEN 120 mg/dL (7-26); BUN/CREATININE RATIO 27 (6-25); CALCIUM 7.1 mg/dL (8.4-10.2); CARBON DIOXIDE 22 mmol/L (22-29); CHLORIDE 101 mmol/L (98-107); CREATININE, SERUM 4.51 mg/dL (0.72-1.25); EST GLOMERULAR FILTRATION RATE 13 ML/MIN (60-); GLUCOSE 135 mg/dL (74-118); POTASSIUM 3.7 mmol/L (3.5-5.1); SODIUM 141 mmol/L (136-145)
[2021-03-15 07:14] LABS: ALANINE AMINOTRANSFERASE < 6 IU/L (0-55)
[2021-03-15 08:22] LABS: LYMPHOCYTES % (MANUAL) 7 % (19-48); MYELOCYTES % (MANUAL) 1 % (0-0); NEUTROPHILS % (MANUAL) 82 % (40-74); PLATELET ESTIMATE ADEQUATE; PLATELET MORPHOLOGY COMMENT NORMAL; RBC MORPHOLOGY COMMENT NORMAL
[2021-03-15 08:23] LABS: BAND NEUTROPHILS % (MANUAL) 3 %; MONOCYTES % (MANUAL) 7 % (3.4-9.0)
[2021-03-15] MEDS: DOCUSATE SODIUM LIQD 100 MG/10 ML UDC NG SCH ×2 (09:00→18:13)
[2021-03-15] MEDS ORDERED: ALBUMIN 25% 25GM 100ML 0.25 GM/ML BTL IV SCH (09:00)
[2021-03-15] MEDS: MEROPENEM 500 MG in SODIUM CHLORIDE 0.9% 50ML 50 ML IV SCH ×2 (09:01→21:11)
[2021-03-15] MEDS: COLLAGENASE 5 GM TUBE TOP SCH (09:02)
[2021-03-15] MEDS: BALSAM PERU/CASTOR OIL 60 GM OINT...G. TP SCH (09:02)
[2021-03-15] MEDS: HEPARIN SOD (PORCINE) 5,000 UNIT/ML VIAL SC SCH ×2 (09:02→21:13)
[2021-03-15] MEDS: NYSTATIN 15 GM POWDER UD BTL TOP SCH ×2 (09:02→18:13)
[2021-03-15] MEDS: FUROSEMIDE INJ 10 MG/ML 4 ML VIAL IV SCH ×2 (10:10→21:52)
[2021-03-15] MEDS: ALBUMIN 25% 25GM 100ML 100 ML IV SCH ×2 (10:11→18:13)
[2021-03-15 11:02] LABS: ABG HCO3 24 mmol/L (22-26); ABG PCO2 36 mmHg (35-45); ABG PH 7.44 (7.35-7.45); ABG PO2 124 mmHg (80-105); ABG TCO2 25
[2021-03-15] MEDS: FLUCONAZOLE 100 MG/NS 50 ML 50 ML IV SCH (12:20)
[2021-03-15] MEDS: ACETAMINOPHEN 325 MG/10 ML UDC NG PRN (15:05)
[2021-03-15] MEDS: CENTRAL TPN FORMULA 1 BAG IV SCH (20:47)
[2021-03-15] MEDS ORDERED: SODIUM CHLORIDE 0.9% 1000ML 1,000 ML ONE (21:46)
[2021-03-16] VITALS (27 sets, daily range): BP systolic 79–152; BP diastolic 46–69
[2021-03-16] MEDS: METOCLOPRAMIDE HCL 10 MG/2ML VIAL IV SCH ×4 (00:04→18:00)
[2021-03-16] MEDS ORDERED: SODIUM CHLORIDE 0.9% 50ML 50 ML ONE (00:11)
[2021-03-16] MEDS: ALBUMIN 25% 25GM 100ML 100 ML IV SCH (00:58)
[2021-03-16] MEDS: ALBUTEROL/IPRATROPIUM 3 ML NEB NEB SCH ×4 (01:00→19:00)
[2021-03-16] MEDS: FENTANYL 2000MCG/NS 250 250 ML IV SCH ×2 (02:15→15:26)
[2021-03-16] MEDS: EYE LUBRICANT OPTH OINT 3.5GM TUBE OP SCH ×3 (06:10→22:37)
[2021-03-16 06:26] LABS: BASOPHILS % 0.7 % (0.0-1.0); EOSINOPHILS % 0.5 % (0.0-6.0); HEMATOCRIT 29.5 % (38.2-49.6); HEMOGLOBIN 9.7 g/dL (14.0-18.0); LYMPHOCYTES # (AUTO) 0.5 (1.0-3.2); LYMPHOCYTES % 8.1 % (18.0-39.1); MEAN CORPUSCULAR HGB CONC 32.9 g/dL (31-35); MEAN CORPUSCULAR VOLUME 94.2 fL (81-99); MONOCYTES # (AUTO) 0.3 (0.2-0.8); MONOCYTES % 4.5 % (4.4-11.3); NEUTROPHILS # (AUTO) 3.7 (2.1-6.9); NEUTROPHILS % 66.3 % (38.7-80.0); PLATELET COUNT 144 x10e3/uL (140-360); RED BLOOD COUNT 3.13 x10e6/uL (4.3-5.7); RED CELL DISTRIBUTION WIDTH 15.9 % (11.7-14.4)
[2021-03-16] MEDS: NOREPINEPHRINE 8 MG/D5W 250 ML 250 ML IV PRN ×2 (06:29→11:57)
[2021-03-16 06:41] LABS: ALBUMIN 2.3 g/dL (3.5-5.0); ALBUMIN/GLOBULIN RATIO 0.8 (0.8-2.0); ALKALINE PHOSPHATASE 36 IU/L (40-150); ANION GAP 22.9 mmol/L (8-16); BUN/CREATININE RATIO 27 (6-25); CALCIUM 7.2 mg/dL (8.4-10.2); CARBON DIOXIDE 21 mmol/L (22-29); CHLORIDE 99 mmol/L (98-107); CREATININE, SERUM 5.04 mg/dL (0.72-1.25); EST GLOMERULAR FILTRATION RATE 11 ML/MIN (60-); GLUCOSE 121 mg/dL (74-118); POTASSIUM 3.9 mmol/L (3.5-5.1); SODIUM 139 mmol/L (136-145)
[2021-03-16 06:44] LABS: BLOOD UREA NITROGEN 135 mg/dL (7-26)
[2021-03-16 06:59] LABS: ALANINE AMINOTRANSFERASE < 6 IU/L (0-55)
[2021-03-16] MEDS: DOCUSATE SODIUM LIQD 100 MG/10 ML UDC NG SCH ×2 (08:05→17:00)
[2021-03-16] MEDS: MEROPENEM 500 MG in SODIUM CHLORIDE 0.9% 50ML 50 ML IV SCH (08:05)
[2021-03-16] MEDS: FUROSEMIDE INJ 10 MG/ML 4 ML VIAL IV SCH (08:05)
[2021-03-16] MEDS: NYSTATIN 15 GM POWDER UD BTL TOP SCH ×2 (08:06→17:00)
[2021-03-16] MEDS: ACETAMINOPHEN 325 MG/10 ML UDC NG PRN ×2 (08:06→15:24)
[2021-03-16] MEDS: COLLAGENASE 5 GM TUBE TOP SCH (08:06)
[2021-03-16] MEDS: BALSAM PERU/CASTOR OIL 60 GM OINT...G. TP SCH (08:06)
[2021-03-16] MEDS: METOPROLOL TARTRATE INJ 1 MG/ML VIAL IV PRN ×2 (08:06→15:24)
[2021-03-16] MEDS: HEPARIN SOD (PORCINE) 5,000 UNIT/ML VIAL SC SCH ×2 (08:07→21:20)
[2021-03-16 08:24] LABS: BAND NEUTROPHILS % (MANUAL) 7 %; LYMPHOCYTES % (MANUAL) 7 % (19-48); MONOCYTES % (MANUAL) 4 % (3.4-9.0); NEUTROPHILS % (MANUAL) 82 % (40-74); PLATELET ESTIMATE ADEQUATE; PLATELET MORPHOLOGY COMMENT NORMAL; RBC MORPHOLOGY COMMENT NORMAL
[2021-03-16] MEDS ORDERED: DIGOXIN INJ 0.25 MG/ML 2 ML AMP IV ONE (10:10)
[2021-03-16] MEDS: FLUCONAZOLE 100 MG/NS 50 ML 50 ML IV SCH (12:10)
[2021-03-16] MEDS: CENTRAL TPN FORMULA 1 BAG IV SCH (21:14)
[2021-03-16] MEDS: PROPOFOL IV EMULSION 50 ML IV SCH (21:22)
[2021-03-17] VITALS (25 sets, daily range): BP systolic 92–148; BP diastolic 37–60
[2021-03-17] MEDS: METOCLOPRAMIDE HCL 10 MG/2ML VIAL IV SCH ×4 (00:33→17:26)
[2021-03-17] MEDS: ALBUTEROL/IPRATROPIUM 3 ML NEB NEB SCH ×4 (01:00→19:30)
[2021-03-17] MEDS: EYE LUBRICANT OPTH OINT 3.5GM TUBE OP SCH ×3 (05:43→22:00)
[2021-03-17 06:11] LABS: BASOPHILS % 0.3 % (0.0-1.0); EOSINOPHILS # (AUTO) 0.1 (0.0-0.4); EOSINOPHILS % 0.4 % (0.0-6.0); HEMATOCRIT 25.8 % (38.2-49.6); HEMOGLOBIN 8.3 g/dL (14.0-18.0); LYMPHOCYTES # (AUTO) 0.8 (1.0-3.2); LYMPHOCYTES % 5.9 % (18.0-39.1); MEAN CORPUSCULAR HGB CONC 32.2 g/dL (31-35); MEAN CORPUSCULAR VOLUME 96.3 fL (81-99); MONOCYTES # (AUTO) 0.9 (0.2-0.8); MONOCYTES % 7.1 % (4.4-11.3); NEUTROPHILS # (AUTO) 9.9 (2.1-6.9); NEUTROPHILS % 74.8 % (38.7-80.0); PLATELET COUNT 124 x10e3/uL (140-360); RED BLOOD COUNT 2.68 x10e6/uL (4.3-5.7); RED CELL DISTRIBUTION WIDTH 16.6 % (11.7-14.4)
[2021-03-17 06:36] LABS: ANION GAP 22.3 mmol/L (8-16); CALCIUM 7.4 mg/dL (8.4-10.2); CREATININE, SERUM 5.67 mg/dL (0.72-1.25); POTASSIUM 4.3 mmol/L (3.5-5.1)
[2021-03-17 07:27] LABS: BAND NEUTROPHILS % (MANUAL) 12 %; LYMPHOCYTES % (MANUAL) 8 % (19-48); MONOCYTES % (MANUAL) 11 % (3.4-9.0); NEUTROPHILS % (MANUAL) 69 % (40-74); PLATELET ESTIMATE SLIGHTLY DECREASED
[2021-03-17 07:28] LABS: ANISOCYTOSIS SLIGHT; PLATELET MORPHOLOGY COMMENT NORMAL; RBC MORPHOLOGY COMMENT NORMAL
[2021-03-17] MEDS ORDERED: SODIUM CHLORIDE 0.9% 1000ML 1,000 ML ONE (08:30)
[2021-03-17] MEDS: BALSAM PERU/CASTOR OIL 60 GM OINT...G. TP SCH (09:28)
[2021-03-17] MEDS: NYSTATIN 15 GM POWDER UD BTL TOP SCH ×2 (09:28→17:26)
[2021-03-17] MEDS: COLLAGENASE 5 GM TUBE TOP SCH (09:28)
[2021-03-17] MEDS: DOCUSATE SODIUM LIQD 100 MG/10 ML UDC NG SCH ×2 (11:00→17:26)
[2021-03-17] MEDS: HEPARIN SOD (PORCINE) 5,000 UNIT/ML VIAL SC SCH ×2 (11:05→21:00)
[2021-03-17] MEDS: PROPOFOL IV EMULSION 50 ML IV SCH ×2 (11:09→23:00)
[2021-03-17] MEDS: NOREPINEPHRINE 8 MG/D5W 250 ML 250 ML IV PRN (12:19)
[2021-03-17] MEDS: FLUCONAZOLE 100 MG/NS 50 ML 50 ML IV SCH (13:24)
[2021-03-17] MEDS: FENTANYL 2000MCG/NS 250 250 ML IV SCH (14:51)
[2021-03-17] MEDS: CENTRAL TPN FORMULA 1 BAG IV SCH (19:46)
[2021-03-18] VITALS (25 sets, daily range): BP systolic 84–119; BP diastolic 33–45
[2021-03-18] MEDS: ALBUTEROL/IPRATROPIUM 3 ML NEB NEB SCH ×3 (02:45→15:15)
[2021-03-18 05:57] LABS: BASOPHILS # (AUTO) 0.1 (0.0-0.1); BASOPHILS % 0.7 % (0.0-1.0); EOSINOPHILS # (AUTO) 0.1 (0.0-0.4); EOSINOPHILS % 0.8 % (0.0-6.0); HEMATOCRIT 23.9 % (38.2-49.6); HEMOGLOBIN 7.6 g/dL (14.0-18.0); LYMPHOCYTES # (AUTO) 0.9 (1.0-3.2); LYMPHOCYTES % 5.9 % (18.0-39.1); MEAN CORPUSCULAR HEMOGLOBIN 30.6 pg (28-32); MEAN CORPUSCULAR HGB CONC 31.8 g/dL (31-35); MEAN CORPUSCULAR VOLUME 96.4 fL (81-99); MONOCYTES # (AUTO) 0.9 (0.2-0.8); MONOCYTES % 6.5 % (4.4-11.3); NEUTROPHILS % 76.2 % (38.7-80.0); PLATELET COUNT 126 x10e3/uL (140-360); RED BLOOD COUNT 2.48 x10e6/uL (4.3-5.7); RED CELL DISTRIBUTION WIDTH 17.2 % (11.7-14.4)
[2021-03-18] MEDS: NOREPINEPHRINE 8 MG/D5W 250 ML 250 ML IV PRN ×4 (06:10→23:43)
[2021-03-18] MEDS: METOCLOPRAMIDE HCL 10 MG/2ML VIAL IV SCH ×5 (06:13→23:42)
[2021-03-18] MEDS: EYE LUBRICANT OPTH OINT 3.5GM TUBE OP SCH ×3 (06:14→21:17)
[2021-03-18 06:15] LABS: INR 1.85; PROTHROMBIN TIME 22.1 seconds (11.9-14.5)
[2021-03-18] MEDS: FENTANYL 2000MCG/NS 250 250 ML IV SCH ×2 (06:17→22:43)
[2021-03-18 06:25] LABS: ALBUMIN 1.3 g/dL (3.5-5.0); ALBUMIN/GLOBULIN RATIO 0.4 (0.8-2.0); ALKALINE PHOSPHATASE 45 IU/L (40-150); ANION GAP 22.6 mmol/L (8-16); BUN/CREATININE RATIO 26 (6-25); CALCIUM 7.2 mg/dL (8.4-10.2); CARBON DIOXIDE 21 mmol/L (22-29); CHLORIDE 91 mmol/L (98-107); CREATININE, SERUM 5.72 mg/dL (0.72-1.25); EST GLOMERULAR FILTRATION RATE 10 ML/MIN (60-); GLUCOSE 102 mg/dL (74-118); POTASSIUM 4.6 mmol/L (3.5-5.1); SODIUM 130 mmol/L (136-145)
[2021-03-18 06:26] LABS: BLOOD UREA NITROGEN 149 mg/dL (7-26)
[2021-03-18 07:03] LABS: ALANINE AMINOTRANSFERASE < 6 IU/L (0-55)
[2021-03-18] MEDS: SUCRALFATE 1 GM/10 ML SUSP NG SCH ×4 (07:39→21:17)
[2021-03-18 07:58] LABS: BAND NEUTROPHILS % (MANUAL) 8 %; EOSINOPHILS % (MANUAL) 1 % (0-7); LYMPHOCYTES % (MANUAL) 11 % (19-48); MONOCYTES % (MANUAL) 6 % (3.4-9.0); MYELOCYTES % (MANUAL) 4 % (0-0); NEUTROPHILS % (MANUAL) 70 % (40-74); PLATELET ESTIMATE SLIGHTLY DECREASED
[2021-03-18 07:59] LABS: ANISOCYTOSIS SLIGHT; HYPOCHROMASIA SLIGHT; PLATELET MORPHOLOGY COMMENT FEW LARGE; POIKILOCYTOSIS SLIGHT
[2021-03-18 08:01] LABS: RBC MORPHOLOGY COMMENT NORMAL
[2021-03-18] MEDS: PROPOFOL IV EMULSION 50 ML IV SCH ×4 (08:10→21:18)
[2021-03-18] MEDS: DOCUSATE SODIUM LIQD 100 MG/10 ML UDC NG SCH ×2 (09:17→17:02)
[2021-03-18] MEDS: BALSAM PERU/CASTOR OIL 60 GM OINT...G. TP SCH (09:18)
[2021-03-18] MEDS: COLLAGENASE 5 GM TUBE TOP SCH (09:18)
[2021-03-18] MEDS: NYSTATIN 15 GM POWDER UD BTL TOP SCH ×2 (09:18→17:02)
[2021-03-18] MEDS: HEPARIN SOD (PORCINE) 5,000 UNIT/ML VIAL SC SCH ×2 (09:18→21:16)
[2021-03-18 11:12] LABS: ABG PH 7.14 (7.35-7.45)
[2021-03-18 11:13] LABS: ABG HCO3 21 mmol/L (22-26); ABG PCO2 64 mmHg (35-45); ABG PO2 69 mmHg (80-105); ABG TCO2 23
[2021-03-18] MEDS: FLUCONAZOLE 100 MG/NS 50 ML 50 ML IV SCH (12:39)
[2021-03-18] MEDS ORDERED: CENTRAL TPN FORMULA 1 BAG IV SCH (20:05)
[2021-03-19] VITALS (17 sets, daily range): BP systolic 47–114; BP diastolic 28–47
[2021-03-19] MEDS: METOCLOPRAMIDE HCL 10 MG/2ML VIAL IV SCH ×2 (05:25→12:00)
[2021-03-19] MEDS: EYE LUBRICANT OPTH OINT 3.5GM TUBE OP SCH ×2 (05:25→13:42)
[2021-03-19 05:29] LABS: BASOPHILS # (AUTO) 0.1 (0.0-0.1); BASOPHILS % 0.6 % (0.0-1.0); EOSINOPHILS # (AUTO) 0.2 (0.0-0.4); EOSINOPHILS % 0.8 % (0.0-6.0); HEMATOCRIT 21.3 % (38.2-49.6); LYMPHOCYTES # (AUTO) 1.1 (1.0-3.2); LYMPHOCYTES % 4.4 % (18.0-39.1); MEAN CORPUSCULAR HEMOGLOBIN 30.7 pg (28-32); MEAN CORPUSCULAR HGB CONC 32.4 g/dL (31-35); MEAN CORPUSCULAR VOLUME 94.7 fL (81-99); NEUTROPHILS # (AUTO) 18.1 (2.1-6.9); PLATELET COUNT 93 x10e3/uL (140-360); RED BLOOD COUNT 2.25 x10e6/uL (4.3-5.7); RED CELL DISTRIBUTION WIDTH 17.3 % (11.7-14.4)
[2021-03-19 05:34] LABS: HEMOGLOBIN 6.9 g/dL (14.0-18.0)
[2021-03-19 05:53] LABS: ALBUMIN 1.1 g/dL (3.5-5.0); ALBUMIN/GLOBULIN RATIO 0.3 (0.8-2.0); ANION GAP 27.2 mmol/L (8-16); CALCIUM 7.2 mg/dL (8.4-10.2); CREATININE, SERUM 5.83 mg/dL (0.72-1.25); POTASSIUM 5.2 mmol/L (3.5-5.1)
[2021-03-19] MEDS: ALBUTEROL/IPRATROPIUM 3 ML NEB NEB SCH ×2 (07:32→13:04)
[2021-03-19] MEDS: SUCRALFATE 1 GM/10 ML SUSP NG SCH ×2 (07:33→11:30)
[2021-03-19] MEDS: PROPOFOL IV EMULSION 50 ML IV SCH (07:34)
[2021-03-19] MEDS: DOCUSATE SODIUM LIQD 100 MG/10 ML UDC NG SCH (09:12)
[2021-03-19] MEDS: HEPARIN SOD (PORCINE) 5,000 UNIT/ML VIAL SC SCH (09:12)
[2021-03-19] MEDS: NYSTATIN 15 GM POWDER UD BTL TOP SCH (09:13)
[2021-03-19] MEDS: COLLAGENASE 5 GM TUBE TOP SCH (09:13)
[2021-03-19] MEDS: BALSAM PERU/CASTOR OIL 60 GM OINT...G. TP SCH (09:13)
[2021-03-19 09:29] LABS: ANISOCYTOSIS SLIGHT; BAND NEUTROPHILS % (MANUAL) 5 %; LYMPHOCYTES % (MANUAL) 4 % (19-48); METAMYELOCYTES % (MANUAL) 5 % (0-0); MONOCYTES % (MANUAL) 3 % (3.4-9.0); MYELOCYTES % (MANUAL) 3 % (0-0); NEUTROPHILS % (MANUAL) 80 % (40-74)
[2021-03-19 09:30] LABS: PLATELET ESTIMATE MODERATELY DECREASED; PLATELET MORPHOLOGY COMMENT NORMAL; POIKILOCYTOSIS SLIGHT
[2021-03-19] MEDS: FLUCONAZOLE 100 MG/NS 50 ML 50 ML IV SCH (13:41)
== END 2021-03-19 16:36 | disposition expired | DRG 853 ==
LOC: ER 22:54 → ERHOLD 23:56 → MED/SURG3 02-24 02:49 → ICU 02-26 09:15
PROVIDERS: ADMIT Internal Medicine; ATTEND Internal Medicine
PROC: 5A1955Z Respiratory Ventilation, Greater than 96 Consecutive Hours (ICD-10-PCS; principal; 2021-02-26)
PROC: 0BH17EZ Insertion of Endotracheal Airway into Trachea, Via Natural or Artificial Opening (ICD-10-PCS; 2021-02-26)
PROC: 02HV33Z Insertion of Infusion Device into Superior Vena Cava, Percutaneous Approach (ICD-10-PCS; 2021-02-26)
PROC: 30233K1 Transfusion of Nonautologous Frozen Plasma into Peripheral Vein, Percutaneous Approach (ICD-10-PCS; 2021-03-01)
PROC: 03HC3DZ Insertion of Intraluminal Device into Left Radial Artery, Percutaneous Approach (ICD-10-PCS; 2021-03-03)
PROC: 30233N1 Transfusion of Nonautologous Red Blood Cells into Peripheral Vein, Percutaneous Approach (ICD-10-PCS; 2021-03-03)
DX: A41.9 Sepsis, unspecified organism (principal); J69.0 Pneumonitis due to inhalation of food and vomit; G93.41 Metabolic encephalopathy; D65 Disseminated intravascular coagulation [defibrination syndrome]; R65.21 Severe sepsis with septic shock; E43 Unspecified severe protein-calorie malnutrition; J96.01 Acute respiratory failure with hypoxia; N17.9 Acute kidney failure, unspecified; J44.1 Chronic obstructive pulmonary disease with (acute) exacerbation; N39.0 Urinary tract infection, site not specified; Z68.1 Body mass index [BMI] 19.9 or less, adult; K56.600 Partial intestinal obstruction, unspecified as to cause; R64 Cachexia; E78.00 Pure hypercholesterolemia, unspecified; Z86.718 Personal history of other venous thrombosis and embolism; F41.9 Anxiety disorder, unspecified; D50.9 Iron deficiency anemia, unspecified; D63.8 Anemia in other chronic diseases classified elsewhere; Z66 Do not resuscitate; E87.6 Hypokalemia; I95.9 Hypotension, unspecified; R62.7 Adult failure to thrive; B96.1 Klebsiella pneumoniae [K. pneumoniae] as the cause of diseases classified elsewhere; I46.8 Cardiac arrest due to other underlying condition; Z20.822 Contact with and (suspected) exposure to COVID-19
CPT/HCPCS: 36415; 36600; 71045; 71260; 74018; 74019; 74230; 76770; 80048; 80053; 80162; 80202; 80320; 81001; 81015; 82150; 82550; 82553; 82607; 82728; 82746; 82805; 82948; 83540; 83605; 83615; 83690; 83735; 84100; 84134; 84466; 84478; 84484; 84630; 85007; 85025; 85027; 85045; 85384; 85610; 85730; 86022; 86850; 86870; 86880; 86900; 86905; 86920; 86922; 87040; 87070; 87086; 87186; 87205; 93005; 93306; 93970; 94002; 94003; 94640; 94660; 99001; 99251; 99284; J0330; J0692; J0696; J1160; J1450; J1644; J1650; J1756; J1940; J2060; J2185; J2250; J2270; J2310; J2370; J2405; J2765; J3370; J3475; J3480; J7030; J7040; J7042; J7050; J7070; J7121; J7799; P9016; P9017; P9047; Q9967